=== PATIENT | female | born 1975 | race Caucasian/White ===

== ENCOUNTER → 2022-11-20 10:00 | Outpatient (BNVA) | payer OTHER, SELFPAY | PROVIDERS: Family Provider Physician Assistant; PCP Family Medicine; Visit Provider Internal Medicine Rheumatology | DX: M19.90 Unspecified osteoarthritis, unspecified site (principal); Z79.899 Other long term (current) drug therapy; Z11.59 Encounter for screening for other viral diseases | CPT/HCPCS: 36415; 80076; 82306; 82565; 85025; 85651; 86140; 86480; 86704; 86803; 87340 ==

== ENCOUNTER → 2023-07-08 14:26 | Outpatient (BNVA) | payer OTHER, SELFPAY | PROVIDERS: Family Provider Physician Assistant; PCP Family Medicine; Visit Provider Internal Medicine Rheumatology | DX: Z79.899 Other long term (current) drug therapy (principal); M05.79 Rheumatoid arthritis with rheumatoid factor of multiple sites without organ or systems involvement; M19.90 Unspecified osteoarthritis, unspecified site; Z71.85 Encounter for immunization safety counseling; Z79.1 Long term (current) use of non-steroidal anti-inflammatories (NSAID); I26.99 Other pulmonary embolism without acute cor pulmonale | CPT/HCPCS: 36415; 80076; 82565; 85025; 86140 ==

== ENCOUNTER → 2023-10-21 14:25 | Outpatient (BNVA) | payer OTHER, SELFPAY | PROVIDERS: Family Provider Physician Assistant; PCP Family Medicine; Visit Provider Internal Medicine Rheumatology | DX: Z79.899 Other long term (current) drug therapy (principal); M05.79 Rheumatoid arthritis with rheumatoid factor of multiple sites without organ or systems involvement | CPT/HCPCS: 80076; 82565; 85025; 86140 ==

== ENCOUNTER 2023-12-16 00:05 | Inpatient (IN) | payer OTHER, SELFPAY ==
[2023-12-16] VITALS (13 sets, daily range): BP systolic 115–144; BP diastolic 64–94; PULSE 77–99; RESP 16–20; TEMP 36.4–37.1; O2SAT 93–97; BMI 59.6
--- NOTE | 2023-12-16 00:06 | XRR_ITS ---
PROCEDURE INFORMATION: Exam: XR Chest Exam date and time: 12/16/2023 1:00 AM Age: 48 years old Clinical indication: Other: Stroke protocol; Additional info: Ams/cva TECHNIQUE: Imaging protocol: Radiologic exam of the chest. Views: 1 view. COMPARISON: CT angio headneck* [id number] 12/16/2023 12:22 AM FINDINGS: Lungs: No consolidation or pulmonary edema. Pleural spaces: No pleural effusion. No pneumothorax. Heart/Mediastinum: Cardiomediastinal silhouette is normal in size. Bones/joints: No acute fractures. XR/XR chest 1V portable [id number] IMPRESSION: No acute findings.
--- NOTE | 2023-12-16 00:07 | ECG_ITS ---
[facility] Test Date: 2023-12-16 Pat Name: Vicki Steve Department: Room: Gender: Female [employer]ayer: : 1975 Requested By: Arturo Singh Order Number: [id number] Leyva MD: Fitz Coley M.D. Measurements Intervals [place] Rate: 88 P: 53 VT: 147 QRS: 46 QRSD: 105 T: 42 QT: 383 QTc: 465 Interpretive Statements SINUS RHYTHM No previous ECG available for comparison Electronically Signed On 12-16-2023 12:28:55 CDT by Fitz Coley M.D. [id number]
--- NOTE | 2023-12-16 00:07 | CTR_ITS ---
PROCEDURE INFORMATION: Exam: CT Head Without Contrast Exam date and time: 12/16/2023 12:10 AM Age: 48 years old Clinical indication: Stroke-like symptoms; Speech disturbance and other: Dysphasia/ aphasia; Additional info: Symptoms of acute stroke TECHNIQUE: Imaging protocol: Computed tomography of the head without contrast. Radiation optimization: All CT scans at this facility use at least one of these dose optimization techniques: automated exposure control; mA and/or kV adjustment per patient size (includes targeted exams where dose is matched to clinical indication); or iterative reconstruction. Other technique: STROKE PROTOCOL was implemented. COMPARISON: No relevant prior studies available. RADIATION DOSE METRICS: Total DLP (mGy-cm): 2208.18 FINDINGS: Brain: There are small hypodensities in the central midbrain and rey, which may represent ischemic infarcts of indeterminate age or artifacts. No acute intracranial hemorrhage. No mass effect or midline shift. No acute extraaxial fluid collection. Unremarkable white matter. Cerebral ventricles: No ventriculomegaly. Paranasal sinuses: Partially visualized sinuses are unremarkable. No fluid levels. Mastoid air cells: Visualized mastoid air cells are well aerated. Bones/joints: Unremarkable. No acute calvarial fracture. Soft tissues: There is a 1.2 cm skin lesion in the left frontal scalp. CT/CT head thrombolytic [id number] IMPRESSION: 1. There are small hypodensities in the central midbrain and rey, which may represent ischemic infarcts of indeterminate age or artifacts. Brain MRI without IV contrast is recommended to further evaluate. 2. No acute intracranial hemorrhage. 3. A 1.2 cm skin lesion in the left frontal scalp. ASSESSMENT: ASPECTS ([place] Stroke Program Early CT Score) is 10.
--- NOTE | 2023-12-16 00:11 | W.ED.AMS ---
HPI - Altered Mental Status General: Chief Complaint: Neuro Symptoms/Deficit Stated Complaint: N/V Time Seen by Provider: 12/16/23 00:06 History of Present Illness: 48-year-old female presents emergency department with nausea vomiting and dysarthria that started approximately 2215. Patient is currently taking apixaban for history of pulmonary embolism. She is alert and oriented x 4 follows commands appropriately. She has no other neurological deficits. Stroke alert was immediately called prior to arrival and upon arrival the patient was immediately taken to the CT scan for evaluation. She denies recent trauma or injury. Review of Systems General: Reports: 10 or more systems reviewed and unremarkable except in HPI and below Neuro: Reports: Slurred speech present [facility] ED PFSH: Medical History Pulmonary embolism NSAID long-term use Immunization counseling High risk medication use Seropositive rheumatoid arthritis of multiple sites Pre-diabetes Joint pain Allergies Positive CLAUDIA (antinuclear antibody) 1:40, not significant Surgical History History of cholecystectomy History of delivery Family History Other CAD (coronary artery disease) Cancer Diabetes Family history of premature coronary artery disease Hypertension Lung disease Denies family history of Rheumatoid arthritis Lupus Hyperlipidemia Chronic kidney disease (CKD) Stroke Social History Smoking and tobacco/nicotine status: former use of tobacco/nicotine Quit status (tobacco/nicotine): has quit using Year quit tobacco: 01/09/2023 Alcohol intake: current Alcohol intake frequency: holidays/special occasions only Physical Exam Narrative: Constitutional: the patient appears well nourished and with normal development. Vital signs reviewed as documented. HENMT: Normocephalic, atraumatic. External ears normal appearance without drainage. Nose without drainage, normal appearance. Mucus membranes moist. Neck is supple, No jugular venous distension, trachea is midline, no appreciable carotid bruits. No lymphadenopathy. No meningeal signs. Flexion, extension and lateral rotation is without pain. Eyes: Pupils are equal, round, reactive to light and accommodation. No scleral icterus. Extra-ocular movement are intact. Thorax is symmetrical and with equal rise and fall with respirations. Resp: Lungs are clear to auscultation. No wheezes, rales, crackles or ronchi at present. Cardio: Regular rate and rhythm. Positive S1, S2. No appreciable murmurs, rubs or gallops. GI: Abdominal exam reveals normal bowel sounds to all quadrants. No organomegaly. No obvious palpable masses noted. No hepatomegally appreciated. Soft, non-tender to palpation. Extremity: Extremities are non-edematous and both femoral and pedal pulses are 2+ and equal bilaterally. Moves all extremities well, sensation in all extremities. Neuro: Alert and oriented x4, person, place, time and situation. Cranial nerves II through XII are grossly intact, at present the patient does have significant dysarthria and slurred speech. Sensation intact to all extremities. 2-point discrimination intact. Light touch intact to all extremities. Motor strength in the upper and lower extremities are equal and bilateral 5/5. Psych: Cooperative, calm, normal thought process, appropriate judgment. Skin: No lesions, rashes. No gross abnormalities noted. Back: Symmetrical, no obvious deformity, No CVA tenderness Course Vital Signs: Vital signs: Vital Signs Temperature 98.7 F 12/16/23 03:36 Pulse Rate 99 12/16/23 06:07 Respiratory Rate 16 12/16/23 03:36 Blood Pressure 136/83 12/16/23 03:36 Pulse Oximetry 97 12/16/23 03:36 Oxygen Delivery Me thod Nasal Cannula 12/16/23 03:42 MDM - Altered Mental Status Medical Decision Making Physical exam completed and documented I did immediately contact Dr. Peraza for neurology and discussed the patient's case I also contact the hospitalist physician for admission to the medical service for additional evaluation treatment and care. Patient did meet exclusion criteria given that she takes apixaban and the patient was not provided and I thrombolytic therapy. A CT scan of the head was obtained and did demonstrate small hypodensities in the central midbrain and rey which may represent ischemic infarcts. Patient also had a 1.2 cm skin lesion to the left frontal scalp region. NIH Stroke Scale/Score (NIHSS) on 12/16/2023 RESULT SUMMARY: 7 points NIH Stroke Scale INPUTS: 1A: Level of consciousness ?> 0 = Alert; keenly responsive 1B: Ask month and age ?> 2 = Aphasic 1C: 'Blink eyes' & 'squeeze hands' ?> 0 = Performs both tasks 2: Horizontal extraocular movements ?> 0 = Normal 3: Visual terrell ?> 0 = No visual loss 4: Facial palsy ?> 0 = Normal symmetry 5A: Left arm motor drift ?> 0 = No drift for 10 seconds 5B: Right arm motor drift ?> 0 = No drift for 10 seconds 6A: Left leg motor drift ?> 0 = No drift for 5 seconds 6B: Right leg motor drift ?> 0 = No drift for 5 seconds 7: Limb Ataxia ?> 0 = No ataxia 8: Sensation ?> 0 = Normal; no sensory loss 9: Language/aphasia ?> 3 = Mute/global aphasia: no usable speech/auditory comprehension 10: Dysarthria ?> 2 = Mute/anarthric 11: Extinction/inattention ?> 0 = No abnormality Medical Records I reviewed the patient's medical records. Lab Data I reviewed the patient's lab results. 12/16/23 00:49 12/16/23 00:49 Radiology Impressions Chest X-Ray 12/16/23 00:06 IMPRESSION: No acute findings. ADDENDUM: 12/16/23 0113 Mild bilateral pulmonary edema or pulmonary venous congestion. Head CT 12/16/23 00:07 IMPRESSION: 1. There are small hypodensities in the central midbrain and rey, which may represent ischemic infarcts of indeterminate age or artifacts. Brain MRI without IV contrast is recommended to further evaluate. 2. No acute intracranial hemorrhage. 3. A 1.2 cm skin lesion in the left frontal scalp. ASSESSMENT: ASPECTS ([place] Stroke Program Early CT Score) is 10. ADDENDUM: 12/16/23 0035 THIS REPORT CONTAINS FINDINGS THAT MAY BE CRITICAL TO PATIENT CARE. The findings and recommendations were verbally communicated via telephone conference with LUAN Shah by Dr. Gonzalez on 12/16/2023 at 12:33 AM CDT. The findings were acknowledged and understood. Head/Neck CTA 12/16/23 00:18 IMPRESSION: 1. No major intracranial artery aneurysm, obstruction or significant stenosis. 2. origin of bilateral posterior cerebral arteries, which is a normal variant. 3. No acute intracranial findings. IMPRESSION: 1. No major neck artery stenosis, aneurysm, pseudoaneurysm or occlusion. 2. Bilateral pulmonary edema. REFERENCES: NASCET CRITERIA. The degree of stenosis in the cervical segment of the internal carotid artery is based on NASCET criteria. Normal is no stenosis. Mild is less than 50% stenosis. Moderate is 50-69% stenosis. Severe is 70% to 99% stenosis. Total occlusion is no detectable patent lumen. Laboratory Results WBC 12.33 10^3/uL (3.29-11.43) H 12/16/23 00:49 RBC 3.90 10^6/uL (3.85-5.65) 12/16/23 00:49 Hgb 13.20 g/dL (11.27-16.99) 12/16/23 00:49 Hct 39.0 % (36-47) 12/16/23 00:49 MCV 100.0 fl (85-98) H 12/16/23 00:49 MCH 33.8 pg (27-33) H 12/16/23 00:49 MCHC 33.8 g/dL (30-55) 12/16/23 00:49 RDW 15.0 % (12.1-15.1) 12/16/23 00:49 Plt Count 340 10^3/cmm (157-399) 12/16/23 00:49 MPV 9.2 fL (7.4-10.4) 12/16/23 00:49 Neut % (Auto) 41.9 % 12/16/23 00:49 Lymph % (Auto) 50.4 % 12/16/23 00:49 [place] % (Auto) 5.8 % 12/16/23 00:49 Eos % (Auto) 0.7 % 12/16/23 00:49 Baso % (Auto) 0.8 % 12/16/23 00:49 Neut # (Auto) 5.15 10^3/uL (1.8-7.7) 12/16/23 00:49 Lymph # (Auto) 6.2 10^3/uL (0.8-4.8) H 12/16/23 00:49 [place] # (Auto) 0.7 10^3/uL (0.2-0.9) 12/16/23 00:49 Eos # (Auto) 0.1 10^3/uL (0.0-0.8) 12/16/23 00:49 Baso # (Auto) 0.1 10^3/uL (0.0-0.1) 12/16/23 00:49 Nucleated RBC % (auto) 0 % 12/16/23 00:49 Nucleated RBCs # 0.0 /100WBC 12/16/23 00:49 PT 12.70 SECONDS (12.1-14.9) 12/16/23 00:49 INR 0.93 (0.8-1.2) 12/16/23 00:49 APTT 27.0 SECONDS (23.9-36.7) 12/16/23 00:49 Sodium 140 mmol/L (136-145) 12/16/23 00:49 Potassium 3.4 mmol/L (3.5-5.1) L 12/16/23 00:49 Chloride 101 mmol/L (98-107) 12/16/23 00:49 Carbon Dioxide 26 mmol/L (22-29) 12/16/23 00:49 Anion Gap 16.4 (5-19) 12/16/23 00:49 BUN 11 mg/dL (6-20) 12/16/23 00:49 Creatinine 1.1 mg/dL (0.5-0.9) H 12/16/23 00:49 GFR Calculation 52.6 mL/min (90-130) L 12/16/23 00:49 Glucose 125 mg/dL (65-115) H 12/16/23 00:49 POC Glucose 144 mg/dL (70-110) H 12/16/23 00:15 Estimat Average Glucose 151 12/16/23 00:49 Hemoglobin A1c 6.9 % (4.0-6.0) H 12/16/23 00:49 Calculated Osmolality 291 mOsm/kg (285-295) 12/16/23 00:49 Calcium 8.8 mg/dL (8.5-10.5) 12/16/23 00:49 Total Bilirubin 0.2 mg/dL (0.15-1.2) 12/16/23 00:49 AST 20 U/L (0-32) 12/16/23 00:49 ALT 26 U/L (0-33) 12/16/23 00:49 Alkaline Phosphatase 86 U/L (35-105) 12/16/23 00:49 Total Protein 6.3 g/dL (6.6-8.7) L 12/16/23 00:49 Albumin 3.6 g/dL (3.5-5.2) 12/16/23 00:49 Globulin 2.7 g/dL (1.3-4.6) 12/16/23 00:49 Triglycerides 197 mg/dL (0-150) H 12/16/23 00:49 Cholesterol 191 mg/dL (0-200) 12/16/23 00:49 LDL Cholesterol, Calc 100 mg/dL (50-129) 12/16/23 00:49 HDL Cholesterol 52 mg/dL (60-100) L 12/16/23 00:49 LDL/HDL Ratio 1.92 RATIO (0.00-3.22) 12/16/23 00:49 Cholesterol/HDL Ratio 3.67 mg/dL (0.0-4.40) 12/16/23 00:49 Urine Color Yellow (Yellow) 12/16/23 00:53 Urine Appearance Clear (CLEAR) 12/16/23 00:53 Urine pH 6 (5-7) 12/16/23 00:53 Ur Specific [place] 1.010 (1.005-1.030) 12/16/23 00:53 Urine Protein Neg (Negative) 12/16/23 00:53 Urine Glucose (UA) Norm (Normal) 12/16/23 00:53 Urine Ketones Negative (Negative) 12/16/23 00:53 Urine Blood Neg (Negative) 12/16/23 00:53 Urine Nitrate Negative (Negative) 12/16/23 00:53 Urine Bilirubin Neg (Negative) 12/16/23 00:53 Urine Urobilinogen 1 mg/dL (Negative) H 12/16/23 00:53 Ur Leukocyte Esterase Negative (Negative) 12/16/23 00:53 Urine Opiates Screen Negative ng/mL (Negative) 12/16/23 00:53 Ur Barbiturates Screen Negative ng/mL (Negative) 12/16/23 00:53 Ur Phencyclidine Scrn Negative ng/mL (Negative) 12/16/23 00:53 Ur Amphetamines Screen Negative ng/mL (Negative) 12/16/23 00:53 U Benzodiazepines Scrn Negative ng/mL (Negative) 12/16/23 00:53 Urine Cocaine Screen Negative ng/mL (Negative) 12/16/23 00:53 U Marijuana (THC) Screen Negative ng/mL (Negative) 12/16/23 00:53 All radiology interpretation(s) finalized by discharge EKG Data EKG 1: Interpretation: Twelve-lead EKG obtained at 0 137 reviewed at 0 140 demonstrates sinus rhythm ventricular rate of 88 bpm, VT interval 147 QRS duration 105, QT [address] elevation or depression to demonstrate acute ischemia or infarction at present. Critical Care Time Critical Care Time: Critical Care Time: Yes Total Critical Care Time: 45 Attestation: The patients was emergently evaluated as this patient's presentation and case had a high probability of a clinically significant, sudden, or life threatening deterioration of this patient's initial critical presentation or condition which required my full and direct attention, intervention and personal management. Discharge Plan Discharge Patient Disposition: Admitted As Inpatient Admit Provider: Huey Hair Clinical Impression: Acute CVA (cerebrovascular accident) Condition: Stable Coding Level of Care Code ED [employer] Worker for Rodney Shafer
--- NOTE | 2023-12-16 00:18 | CTR_ITS ---
PROCEDURE INFORMATION: Exam: CTA Head With Contrast, Arteriography Exam date and time: 12/16/2023 12:22 AM Age: 48 years old Clinical indication: Speech disturbance; Dysphasia; Additional info: Ams/cva TECHNIQUE: Imaging protocol: Computed tomographic angiography of the head with contrast. Exam focused on the arteries. 3D rendering (Not supervised by radiologist): MIP and/or 3D reconstructed images were created by the technologist. Radiation optimization: All CT scans at this facility use at least one of these dose optimization techniques: automated exposure control; mA and/or kV adjustment per patient size (includes targeted exams where dose is matched to clinical indication); or iterative reconstruction. Contrast material: OMNI 350; Contrast volume: 100 ml; Contrast route: INTRAVENOUS (IV); COMPARISON: CT head thrombolytic [id number] 12/16/2023 12:10 AM RADIATION DOSE METRICS: Total DLP (mGy-cm): 565.02 FINDINGS: ANTERIOR CIRCULATION: Right internal carotid artery: Intracranial segment is patent with no significant stenosis. No aneurysm. Calcified atherosclerotic plaques without significant stenosis. Right middle cerebral artery: No occlusion or significant stenosis. No aneurysm. Right anterior cerebral artery: No occlusion or significant stenosis. No aneurysm. Left internal carotid artery: Intracranial segment is patent with no significant stenosis. No aneurysm. Calcified atherosclerotic plaques without significant stenosis. Left middle cerebral artery: No occlusion or significant stenosis. No aneurysm. Left anterior cerebral artery: No occlusion or significant stenosis. No aneurysm. POSTERIOR CIRCULATION: Right vertebral artery: No occlusion or significant stenosis. No aneurysm. Left vertebral artery: No occlusion or significant stenosis. No aneurysm. Basilar artery: No occlusion or significant stenosis. No aneurysm. Right posterior cerebral artery: No occlusion or significant stenosis. No aneurysm. There is a origin of the right posterior cerebral artery, which is a normal variant. Left posterior cerebral artery: No occlusion or significant stenosis. No aneurysm. There is a origin of the left posterior cerebral artery, which is a normal variant. Brain: There is no evidence of acute intracranial hemorrhage, subacute or chronic ischemic infarct, acute intra-axial or extra-axial fluid collection, mass effect, or midline shift. Cerebral ventricles: No ventriculomegaly. Bones/joints: Unremarkable. No acute fracture. Soft tissues: Unremarkable. PROCEDURE INFORMATION: Exam: CTA Neck With Contrast Exam date and time: 12/16/2023 12:22 AM Age: 48 years old Clinical indication: Speech disturbance; Dysphasia; Additional info: Ams/cva TECHNIQUE: Imaging protocol: Computed tomographic angiography of the neck with contrast. Exam focused on the cervical segments of the vasculature. 3D rendering (Not supervised by radiologist): MIP and/or 3D reconstructed images were created by the technologist. Radiation optimization: All CT scans at this facility use at least one of these dose optimization techniques: automated exposure control; mA and/or kV adjustment per patient size (includes targeted exams where dose is matched to clinical indication); or iterative reconstruction. Contrast material: OMNI 350; Contrast volume: 100 ml; Contrast route: INTRAVENOUS (IV); COMPARISON: CT head thrombolytic [id number] 12/16/2023 12:10 AM RADIATION DOSE METRICS: Total DLP (mGy-cm): 565.02 FINDINGS: Right common carotid artery: No stenosis. No dissection or occlusion. Right internal carotid artery: No stenosis of the extracranial segment. No dissection or occlusion. Right external carotid artery: No occlusion or stenosis of the origin. Left common carotid artery: No stenosis. No dissection or occlusion. Left internal carotid artery: No stenosis of the extracranial segment. No dissection or occlusion. Left external carotid artery: No occlusion or stenosis of the origin. Right vertebral artery: No stenosis. No dissection or occlusion. Left vertebral artery: No stenosis. No dissection or occlusion. Soft tissues: Normal. No significant soft tissue swelling. Bones/joints: No acute fracture. Lungs: Bilateral pulmonary edema. CT/CT angio headneck* [id number] IMPRESSION: 1. No major intracranial artery aneurysm, obstruction or significant stenosis. 2. origin of bilateral posterior cerebral arteries, which is a normal variant. 3. No acute intracranial findings. IMPRESSION: 1. No major neck artery stenosis, aneurysm, pseudoaneurysm or occlusion. 2. Bilateral pulmonary edema. REFERENCES: NASCET CRITERIA. The degree of stenosis in the cervical segment of the internal carotid artery is based on NASCET criteria. Normal is no stenosis. Mild is less than 50% stenosis. Moderate is 50-69% stenosis. Severe is 70% to 99% stenosis. Total occlusion is no detectable patent lumen.
[2023-12-16] MEDS: iohexol 350 mg/mL 500 mL Btl (per mL) IV (00:37)
--- NOTE | 2023-12-16 00:54 | PM.CONSULT ---
Providers/Reason For Consult Consulting Physician/Specialty*: Ciro Peraza MD neurology and epilepsy Reason for Consult*: Code stroke emergency department room #10 Primary Care Provider: Binu Etienne MD History of Present Illness History of Present Illness Vicki Steve is a 48 year old female with a history of pulmonary embolus treated with Eliquis, and seropositive rheumatoid arthritis. According to witnesses, the patient was reported to experience acute on onset of severe nausea and vomiting associated with aphasia and dysphagia at 10:15 PM on 12/15/2023. Code stroke was initiated at 11:29 PM alerting estimated time of arrival 35 minutes out from [facility] emergency room. Upon arrival at [facility] emergency department the patient underwent stat noncontrast head CT and CT angiogram of the head and neck were ordered. NIH score = 7 performed by the attending ER physician. Immediately following none contrast head CT and CT angiogram of the head and neck once the patient was brought back to emergency department room #10 NIH score performed by me =3 (secondary to stuttering type expressive aphasia, dysarthria and questionable neglect on double sensory stimulation). There was no obvious facial weakness and patient was able to protrude her tongue and there was bilateral elevation of her palate. There was no focal weakness in her arm or legs. Handgrips appeared strong with prompting. Noncontrast Head CT scan was performed on 12/16/2023 at 00:17 a.m. and was interpreted by radiology to reveal small hypodensities in the central midbrain and rey, which may represent ischemic infarcts of indeterminate age or artifacts. Brain MRI without IV contrast is recommended to further evaluate. Accu-Chek glucose 144. Since the patient is currently on Eliquis, patient was not a candidate for thrombolytics and no thrombolytics were administered. CT angiogram of the head and neck was performed on 12/16/2023 at 00:18 a.m. and was reported by radiology to reveal No major intracranial artery aneurysm, obstruction or significant stenosis. 2. origin of bilateral posterior cerebral arteries, which is a normal variant. 3. No acute intracranial findings. Drug allergies: None Current home medications: Eliquis 10 mg p.o. twice daily for pulmonary embolus Adalimumab 40 mg subcutaneously every 14 days for rheumatoid arthritis Methotrexate 2.5 mg to be used as directed for rheumatoid arthritis Prednisone 10 mg p.o. daily Sulfasalazine 500 mg tablets 2 tablets p.o. twice daily Vitamin B complex with vitamin C 1 capsule p.o. daily Albuterol sulfate 90 mcg per accusation 2 puffs every 6 hours as needed Cetirizine 5 mg/pseudoephedrine 20 mg ER 1 p.o. twice daily Vitamin D3 2000 international units p.o. daily Diclofenac 1% topical gel 2 g topically 4 times a day Flonase 50 mcg per accusation 2 sprays intranasally daily Folic acid 1 mg p.o. daily Omeprazole 40 mg p.o. daily Past medical history: Pulmonary embolus currently treated with Eliquis Seropositive rheumatoid arthritis Habits: Unknown Family history: Unknown Review of Systems General: Reports: 10 or more systems reviewed and unremarkable except in HPI and below Medications/Allergies Home Medications Medication Instructions Recorded Confirmed Last Taken Type albuterol sulfate 90 mcg/actuation 2 puff inhalation Q6H PRN 11/19/22 10/21/23 Unknown History aerosol inhaler (ProAir HFA) cetirizine 5 mg-pseudoephedrine ER 1 tab PO BID 11/19/22 10/21/23 Unknown History 120 mg tablet,extended release,12hr (Zyrtec-D) fluticasone propionate 50 2 spray intranasal DAILY 11/19/22 10/21/23 Unknown History mcg/actuation nasal spray,suspension (Allergy Relief (fluticasone)) vitamin B comp and C no.3 15 mg-10 1 cap PO DAILY 11/19/22 10/21/23 Unknown History mg-50 mg-5 mg-300 mg capsule (B Complex Plus Vitamin C) apixaban 5 mg tablet (Eliquis) 10 mg PO BID 01/14/23 10/21/23 Unknown History diclofenac sodium 1 % topical gel 2 g topical QID #100 grams 01/14/23 10/21/23 Unknown Rx cholecalciferol (vitamin D3) 50 2,000 unit PO DAILY #90 tabs 07/08/23 10/21/23 Unknown Rx mcg (2,000 unit) tablet adalimumab 40 mg/0.8 mL 40 mg (0.8 mL) SUBCUT Q14D #2 ea 10/21/23 10/21/23 Unknown Rx subcutaneous pen kit (Humira Pen) folic acid 1 mg tablet 1 mg PO DAILY #90 tabs 10/21/23 10/21/23 Unknown Rx methotrexate sodium 2.5 mg tablet See Rx Instructions PO .week 10/21/23 10/21/23 Unknown Rx Rheumatoid Arthritis #150 tabs omeprazole 40 mg capsule,delayed 40 mg PO DAILY #90 caps 10/21/23 10/21/23 Unknown Rx release prednisone 10 mg tablet 10 mg PO DAILY joint pain #90 tabs 10/21/23 10/21/23 Unknown Rx sulfasalazine 500 mg tablet 1 g (2 x 500 mg) PO BID #120 tabs 10/21/23 10/21/23 Unknown Rx Allergies Allergy/AdvReac Type Severity Reaction Status Date / Time No Known Allergies Allergy Verified 12/16/23 00:48 Current Medications Generic Name Dose Route Start Last Admin Trade Name Bijuq PRN Reason Stop Dose Admin Iohexol 0 ml 12/16/23 00:36 12/16/23 00:37 Iohexol 350 Mg/Ml 500 Ml Btl (Per Ml) IV 12/16/23 00:37 100 ml ONCE ONE Administration PFSH Acute PFSH: Medical History Pulmonary embolism NSAID long-term use Immunization counseling High risk medication use Seropositive rheumatoid arthritis of multiple sites Pre-diabetes Joint pain Allergies Positive CLAUDIA (antinuclear antibody) 1:40, not significant Surgical History History of cholecystectomy History of delivery Family History Other CAD (coronary artery disease) Cancer Diabetes Family history of premature coronary artery disease Hypertension Lung disease Denies family history of Rheumatoid arthritis Lupus Hyperlipidemia Chronic kidney disease (CKD) Stroke Social History Smoking and tobacco/nicotine status: former use of tobacco/nicotine Quit status (tobacco/nicotine): has quit using Year quit tobacco: 01/09/2023 Alcohol intake: current Alcohol intake frequency: holidays/special occasions only Vitals/I&O/Wt Last Vital Signs Temp 98.7 F 12/16/23 00:25 Pulse 99 12/16/23 00:25 Resp 20 H 12/16/23 00:25 BP 144/94 12/16/23 00:25 Pulse Ox 93 12/16/23 00:25 O2 Del Method Room Air 12/16/23 00:25 Weight last 48 hrs Weight 326 lb Physical Exam Narrative: NIH score =3 (secondary to stuttering type speech/expressive aphasia, dysarthria, and questionable neglect on double sensory stimulation). Blood pressure 144/94 heart rate 102 O2 saturations 92% on room air The patient was alert and oriented x 3 speech at times stuttering with expressive aphasia. Patient was able to protrude her tongue. There was no facial weakness. Pupils 4 mm round reactive to light and accommodation. Extraocular movements intact. There were no nystagmus. Visual terrell appear to be full via confrontation. Throat clear. Patient was able to protrude her tongue and move her tongue without any difficulty. Patient displayed bilateral elevation of her palate. Motor testing grossly nonfocal at 5/5. Patient was able to hold her arms against gravity as well as her legs against gravity. There was no drift. [id number] was negative for obvious ataxia. Ucfo-ilqi-[id number] maneuver was not attempted secondary to patient's being overweight. Sensory examination was intact to touch. There was some questionable extinction on double sensory stimulation. Deep tendon reflex revealed plantar responses bilaterally. There was no clonus. Throat clear. Lungs clear. Heart regular rhythm with slightly increased rate at 102 bpm. Extremities were negative for cyanosis. A&P Assessment and plan (1) Non-fluent aphasia: Impression: 1. Acute onset of nausea and vomiting associated with expressive aphasia on 12/15/2023 at 10:15 PM. Note: Since the patient is currently on Eliquis for pulmonary embolus, patient was not a candidate for thrombolytics and no thrombolytics were administered 2. Reported dysphagia associated with nausea and vomiting. Patient was not experiencing vomiting or dysphagia during this neurological assessment although the patient reported some nausea 3. Pulmonary embolus currently on Eliquis 4. Seropositive rheumatoid arthritis Plan: 1. Agree with obtaining head MRI without and with contrast to further assess for posterior circulation stroke since noncontrast head CT was inconclusive to confirm or exclude acute stroke 2. Recommend starting lipid-lowering agent per NIH stroke protocol if no contraindications 3. Recommend speech path, occupational therapy and physical therapy consults 4. Neurochecks per NIH stroke protocol Consult Attestations Medical Necessity Statement: The patient was evaluated by neurology for acute care/code stroke emergency department room #10 Coding Level of Care Code 93145 Diagnoses Non-fluent aphasia R47.01
[2023-12-16 01:11] LABS: Basophils # 0.1 10^3/uL (0.0-0.1); Basophils % 0.8 %; Eosinophils # 0.1 10^3/uL (0.0-0.8); Eosinophils % 0.7 %; Lymphocytes # 6.2 10^3/uL (0.8-4.8); Lymphocytes % 50.4 %; Mean Corpuscular HGB Conc 33.8 g/dL (30-55); Mean Corpuscular Hemoglobin 33.8 pg (27-33); Mean Platelet Volume 9.2 fL (7.4-10.4); Monocytes # 0.7 10^3/uL (0.2-0.9); Monocytes % 5.8 %; Neutrophils # 5.15 10^3/uL (1.8-7.7); Neutrophils % 41.9 %; Nucleated Red Blood Cells % 0 %; Platelet Count 340 10^3/cmm (157-399); White Blood Count 12.33 10^3/uL (3.29-11.43)
[2023-12-16 01:13] LABS: Add Urine Microscopic? NO; Charge for UA Resulting for Rev
[2023-12-16 01:18] LABS: Bilirubin Urine Neg (Negative); Blood Urine Neg (Negative); Glucose Urine UA Norm (Normal); Ketones Urine Negative (Negative); Leukocyte Esterase Urine Negative (Negative); Nitrate Urine Negative (Negative); Protein Urine Neg (Negative); Urine Appearance Clear (CLEAR); Urine Color Yellow (Yellow); Urobilinogen Urine 1 mg/dL (Negative); pH Urine 6 (5-7)
[2023-12-16 01:26] LABS: INR 0.93 (0.8-1.2)
[2023-12-16 01:26] LABS: Amphetamines Screen Urine Negative (Negative); Barbiturates Screen Urine Negative (Negative); Benzodiazepines Screen Urine Negative (Negative); Cocaine Screen Urine Negative (Negative); Opiate Screen Urine Negative (Negative); PCP Screen Urine Negative (Negative); THC Screen Urine Negative (Negative)
[2023-12-16 01:38] LABS: Alanine Aminotransferase 26 U/L (0-33); Albumin Level 3.6 g/dL (3.5-5.2); Alkaline Phosphatase 86 U/L (35-105); Anion Gap 16.4 (5-19); Aspartate Amino Transferase 20 U/L (0-32); Blood Urea Nitrogen 11 mg/dL (6-20); Calcium 8.8 mg/dL (8.5-10.5); Carbon Dioxide 26 mmol/L (22-29); Chloride 101 mmol/L (98-107); Creatinine Clr Calc Pharmacy 86.1672; Globulin 2.7 g/dL (1.3-4.6); Glomerular Filtration Rate 52.6 mL/min (90-130); Glucose 125 mg/dL (65-115); Osmolality Calculated 291 mOsm/kg (285-295); Potassium 3.4 mmol/L (3.5-5.1); Sodium 140 mmol/L (136-145); Total Bilirubin 0.2 mg/dL (0.15-1.2); Total Protein 6.3 g/dL (6.6-8.7)
[2023-12-16 02:56] LABS: Glucose Point of Care 144 mg/dL (70-110)
--- NOTE | 2023-12-16 03:05 | MR_ITS ---
WS: [id number] MRI BRAIN WITH AND WITHOUT CONTRAST HISTORY: acute stroke COMPARISON: CT head 12/16/2023 TECHNIQUE: Multiplanar imaging performed through the brain with MultiHance 20 ml's IV. No acute infarcts are seen. Cho-white matter differentiation is well preserved. Normal diffusion elizabeth ging. No prior infarct. No significant white matter disease. No atrophy. No susceptibility artifacts or prior lacunar infarcts. Normal temporal lobes. No hippocampal atrophy. Ventricles and extra-axial spaces are normal. Clivus and pituitary gland are normal. Visualized posterior fossa and brainstem are also normal. Postcontrast images are negative for masses or vascular malformations. Dural venous sinuses are normal. Paranasal sinuses: Well aerated with no significant disease. Mastoid air cells: Normal. Calvarium and scalp: Normal. IMPRESSION: 1. No acute infarct. No diffusion abnormality. 2. No prior infarct. No atrophy or significant small vessel disease. 3. No mass.
--- NOTE | 2023-12-16 03:05 | USCV_ITS ---
Vicki Steve Age: 48 Gender: F : 1975 Exam Date: 12/16/2023 03:39 Ordering Phys: Huey Hair DO Technologist: LIANNA Exam Location: [facility] [place] Indication: stroke, altered mental status, dysphasia, CT = brain stem infarcts, history of pulmonary emboli, rhematoid arthritis BP: 136 / 83 HR: 92 Rhythm: Sinus Technical Quality: Adequate MEASUREMENTS (Male / Female) Normal Values 2D ECHO LV Diastolic Diameter PLAX 4.9 cm 4.2 - 5.9 / 3.9 - 5.3 cm IVS Diastolic Thickness 1.1 cm 0.6 - 1.0 / 0.6 - 0.9 cm IVS Systolic Thickness 1.7 cm LVPW Diastolic Thickness 1.3 cm 0.6 - 1.0 / 0.6 - 0.9 cm LVPW Systolic Thickness 1.3 cm LVOT Diameter 2.1 cm LV Ejection Fraction 2D Teich 67.9 % LV Ejection Fraction MOD 2C 68.9 % LV Ejection Fraction 2C AL 71.2 % LA Diameter 3.1 cm LA Sys Volume AL 41.2 cm cubed LA Sys Volume Index AL 15.6 cm cubed/m squared Aorta at Sinotubular Diameter 2.8 cm IVC Diameter 1.2 cm M-MODE LA Ao Ratio MM 1.3 AV Cusp Separation MM 2.0 cm DOPPLER AV Peak Velocity 117.0 cm/s LVOT Peak Velocity 79.0 cm/s AV Area Cont Eq vti 3.2 cm squared AV Area Cont Eq pk 2.4 cm squared MV Peak Velocity 87.0 cm/s MV Area PHT 4.0 cm squared Mitral E to A Ratio 1.2 TV Peak E Velocity 64.0 cm/s PV Peak Velocity 79.0 cm/s FINDINGS Left Ventricle Left ventricle is normal size. LV systolic function is borderline normal with EF of 50 to 55%. No regional wall motion abnormalities are seen. Right Ventricle Normal in size and function Right Atrium Normal in size Left Atrium Normal in size Mitral Valve Structurally normal mitral valve. Trace mitral regurgitation. Aortic Valve Structurally normal aortic valve. No significant stenosis or regurgitation. Tricuspid Valve Mild tricuspid regurgitation. Insufficient TR jet to evaluate RVSP. Pulmonic Valve Trace pulmonic regurgitation. Pericardium Normal Aorta Normal in size IVC Appears to be normal CONCLUSIONS LV systolic function is borderline normal with EF of 50 to 55%. Trace mitral regurgitation. Mild tricuspid regurgitation. Trace pulmonic regurgitation No comparison studies are available. Fitz Coley MD (Electronically Signed) Final Date: 16 December 2023 07:50 S
[2023-12-16] MEDS: sodium chloride 0.9% 1,000 ML 100 ML IV ×2 (03:14→16:03)
--- NOTE | 2023-12-16 03:19 | PM.HP ---
Providers/Chief Complaint Admitting Physician: Huey Hair DO Primary Care Provider: Binu Etienne MD Chief Complaint: N/V History of Present Illness Vicki Steve is a 48 year old female with history of PE and rheumatoid arthritis on long-term steroids producing secondary diabetes presents with sudden onset of not feeling well overall weak and having trouble moving. Her daughter is present and gives other history that patient was unable to speak. She seemed to understand but could not find her words. Patient came to the ER as a stroke code. The CT of the head showed brainstem infarcts of indeterminate age. CTA of head and neck was negative it was felt that this was an acute stroke in the brainstem. To my understanding she was out of the window for thrombolytics per neurology Review of Systems Const: Denies: fever(s) or chills Eyes: Denies: change in vision ENMT: Denies: throat pain or nasal congestion Card: Denies: chest pain or palpitations Resp: Denies: dyspnea or productive cough GI: Denies: abdominal pain, nausea, vomiting or change in stool character : Denies: dysuria Musc: Denies: back pain or extremity pain Skin/Breast: Denies: rash or lesions Neuro: Denies: headache(s) or dizziness Psych: Denies: anxiety or depression Abbe/Lymph: Denies: easy bruising or easy bleeding Medications/Allergies Home Medications Medication Instructions Recorded Confirmed Last Taken Type albuterol sulfate 90 mcg/actuation 2 puff inhalation Q6H PRN 11/19/22 10/21/23 Unknown History aerosol inhaler (ProAir HFA) cetirizine 5 mg-pseudoephedrine ER 1 tab PO BID 11/19/22 10/21/23 Unknown History 120 mg tablet,extended release,12hr (Zyrtec-D) fluticasone propionate 50 2 spray intranasal DAILY 11/19/22 10/21/23 Unknown History mcg/actuation nasal spray,suspension (Allergy Relief (fluticasone)) vitamin B comp and C no.3 15 mg-10 1 cap PO DAILY 11/19/22 10/21/23 Unknown History mg-50 mg-5 mg-300 mg capsule (B Complex Plus Vitamin C) apixaban 5 mg tablet (Eliquis) 10 mg PO BID 01/14/23 10/21/23 Unknown History diclofenac sodium 1 % topical gel 2 g topical QID #100 grams 01/14/23 10/21/23 Unknown Rx cholecalciferol (vitamin D3) 50 2,000 unit PO DAILY #90 tabs 07/08/23 10/21/23 Unknown Rx mcg (2,000 unit) tablet adalimumab 40 mg/0.8 mL 40 mg (0.8 mL) SUBCUT Q14D #2 ea 10/21/23 10/21/23 Unknown Rx subcutaneous pen kit (Humira Pen) folic acid 1 mg tablet 1 mg PO DAILY #90 tabs 10/21/23 10/21/23 Unknown Rx methotrexate sodium 2.5 mg tablet See Rx Instructions PO .week 10/21/23 10/21/23 Unknown Rx Rheumatoid Arthritis #150 tabs omeprazole 40 mg capsule,delayed 40 mg PO DAILY #90 caps 10/21/23 10/21/23 Unknown Rx release prednisone 10 mg tablet 10 mg PO DAILY joint pain #90 tabs 10/21/23 10/21/23 Unknown Rx sulfasalazine 500 mg tablet 1 g (2 x 500 mg) PO BID #120 tabs 10/21/23 10/21/23 Unknown Rx Allergies Allergy/AdvReac Type Severity Reaction Status Date / Time No Known Allergies Allergy Verified 12/16/23 00:48 PFSH Acute PFSH: Medical History Pulmonary embolism NSAID long-term use Immunization counseling High risk medication use Seropositive rheumatoid arthritis of multiple sites Pre-diabetes Joint pain Allergies Positive CLAUDIA (antinuclear antibody) 1:40, not significant Surgical History History of cholecystectomy History of delivery Family History Other CAD (coronary artery disease) Cancer Diabetes Family history of premature coronary artery disease Hypertension Lung disease Denies family history of Rheumatoid arthritis Lupus Hyperlipidemia Chronic kidney disease (CKD) Stroke Social History Smoking and tobacco/nicotine status: former use of tobacco/nicotine Quit status (tobacco/nicotine): has quit using Year quit tobacco: 01/09/2023 Alcohol intake: current Alcohol intake frequency: holidays/special occasions only Vitals/I&O/Wt Last Vital Signs Temp 98.7 F 04/16/24 00:25 Pulse 93 12/16/23 02:23 Resp 16 12/16/23 02:23 BP 136/83 12/16/23 02:23 Pulse Ox 97 12/16/23 02:23 O2 Del Method Room Air 12/16/23 00:25 Weight last 48 hrs Weight 147.871 kg Physical Exam Narrative: Patient is alert oriented appears acutely ill Neuro:NIHSS 8, drift in all 4 ext. limb ataxia in 2, sensory 1, aphasia 1 HEENT head is normocephalic atraumatic pupils equal and round and reactive to light and commendation extraocular muscles are intact mucous membranes are moist and pink without lesions or exudate neck is supple no JVD carotid bruits or lymphadenopathy Chest: Rises symmetrically with inspiration Heart: Regular normal S1-S2 without murmur click gallop or rub Lungs: Clear to auscultation without wheezes rales or rhonchi Abdomen obese soft nontender nondistended positive bowel sounds Extremities trace pitting edema along anterior dickson bilaterally Back: No obvious scoliosis or kyphosis no CVA tenderness Psych mood and affect are appropriate for condition Skin no obvious rash or lesion Urinary Catheter Management: Webb: Cath Placed During This Visit: yes Urinary Catheter Date of Insertion: 12/16/23 Urinary Catheter Time of Insertion: 00:45 Data 12/16/23 00:49 12/16/23 00:49 CXR: My impression: No acute findings Radiologist's impression: No acute findings CT Head: Radiologist's impression: 1. There are small hypodensities in the central midbrain and rey, which may represent ischemic infarcts of indeterminate age or artifacts. Brain MRI without IV contrast is recommended to further evaluate. 2. No acute intracranial hemorrhage. 3. A 1.2 cm skin lesion in the left frontal scalp. 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 until dysphagia screen MRI brain tomorrow Echo per standing orders however this is posterior stroke so echo unlikely to reveal etiology of stroke (2) Non-fluent aphasia: (3) Pulmonary embolism: About a year ago Qualifiers: Pulmonary embolism type: unspecified Chronicity: chronic Acute cor pulmonale presence: unspecified Qualified Code(s): I27.82 - Chronic pulmonary embolism (4) Seropositive rheumatoid arthritis of multiple sites: Resume prednisone when able to take p.o. 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 She needs to be closely monitored for worsening signs and symptoms. With patient's comorbidities she is at high risk for complications of stroke. 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
[2023-12-16 03:46] LABS: Chol HDL Ratio 3.67 mg/dL (0.0-4.40); Cholesterol 191 mg/dL (0-200); HDL Cholesterol 52 mg/dL (60-100); LDL Cholesterol Calculated 100 mg/dL (50-129); LDL HDL Ratio 1.92 RATIO (0.00-3.22); Triglycerides 197 mg/dL (0-150)
[2023-12-16 04:00] LABS: Estmated Average Glucose 151; Hemoglobin A1C 6.9 % (4.0-6.0)
[2023-12-16 06:22] LABS: Glucose Point of Care 120 mg/dL (70-110)
--- OUTSIDE RECORDS SUMMARY | 2023-12-16 06:27 | XMS_ITS ---
Author Name Binu Etienne Address [address] [place] [address] [phone] Organization [facility] Address [address] [place] [address] [phone] Care Team Providers Care Insole Buffer Name Role Phone Binu Etienne Primary Care Physician Unavail able Binu Etienne Preferred Provider Unavailable Allergies and Adverse Reactions Name Reaction Notes NO KNOWN DRUG ALLERGIES Medications Active Name Start Date Estimated Comple tion Date SIG Comments prednisone 20 mg tablet Take 0.5 tab let daily omeprazole 40 mg capsule,delayed release take 1 capsule ( 40 mg) by oral route once daily before a meal folic acid 1 mg tablet take 1 tablet (1 mg) by oral route once daily methotrexate sodium 2.5 mg tablet take 10 tablets (2.5 mg) by oral route once weekly albuterol sulfate HFA 90 mcg/actuation aerosol inhaler 01/17/2023 01/12/2024 inhale 1 - 2 puffs (90 - 180 mcg) by inhalation route every 6 hours as needed for 90 days metformin 500 mg tablet 02/07/2023 02/02/2024 take 1 tablet (500 mg) by oral route 2 times per day with morning and evening meals for 90 days Eliquis 5 mg tablet 11/19/2023 TAKE 1 T ABLET BY MOUTH TWICE DAILY FOR 28 DAYS furosemide 20 mg tablet 11/19/2023 TAKE 1 TABLET BY MOUTH EVERY DAY FOR 7 DAYS then NEEDED Name Start Date Expiration Date SIG Comments Levaquin 500 mg oral tablet 07/13/2007 07/23/2007 take 1 tablet (500mg ) by oral route once daily for 10 days Reynolds 7.5-325 mg oral tablet 09/07/2007 09/17/2007 take 1 tablet by ora l route every 6 hours as needed for pain [place] HC 12.5-5-3.5 mg/5 mL oral syrup 09/17/2007 09/27/2007 take 2 teaspoonfuls (10 ml) by oral route every 6 hours for 10 days Zithromax Z-Samy 250 mg oral tablet 09/05/2008 09/15/2008 Take 2 tablets the first day (500 mg) followed by 1 tablet (250 mg) days 2-5. for 5 days diazepam 2 mg oral tablet 12/06/2008 12/11/2008 ta ke 1 tablet by oral route 4 times a day as needed for 5 days penicillin V potassium 250 mg oral tablet 03/21/2009 03/31/2009 take 1 tablet by ora l route 4 times a day for 10 days Lortab 5-500 mg oral tablet 03/21/2009 03/28/2009 take 1 tablet by ora l route every 6 hours as needed for pain for 7 days Anjelica-D 24 Hour 180-240 mg oral tablet extended release 24 hr 07/04/2009 07/18/2009 take 1 tablet by ora l route daily for 14 days Tussionex Pennkinetic ER 10-8 mg/5 mL oral suspension,extended rel 12 hr 08/17/2009 08/31/2009 take 5 milliliters b y oral route 2 times a day as needed for 14 days Zithromax 250 mg oral tablet 08/17/2009 08/22/2009 take 2 tablets (500 mg) by oral route once daily for 1 day then 1 tablet (250 mg) by oral route once daily for 4 days Zithromax Z-Samy 250 mg oral tablet 07/05/2010 07/10/2010 take 2 tablets (500m g) by oral route once daily for 1 day then 1 tablet (250mg) by oral route once daily for 4 days Hydromet 5-1.5 mg/5 mL oral syrup 07/05/2010 07/15/2010 take 5 milliliters b y oral route every 6 hours as needed for 10 days Lortab 7.5-500 mg oral tablet 03/25/2011 03/30/2011 take 1 tablet by ora l route every 6 hours as needed for pain for 5 days Augmentin 875-125 mg oral tablet 03/25/2011 04/04/2011 take 1 tablet by ora l route every 12 hours for 10 days prednisone 10 mg oral tablet 03/26/2011 04/04/2011 take 3 tablets daily for 3 days, 2 tablets daily for 3 days, then 1 tablet daily for 3 days. Take with meal or snack Zithromax Z-Samy 250 mg oral tablet 09/06/2011 09/11/2011 take 2 tablets (500m g) by oral route once daily for 1 day then 1 tablet (250mg) by oral route once daily for 4 days albuterol sulfate 90 mcg/actuation inhalation HFA aerosol inhaler 06/03/2012 07/03/2012 inhale 2 puffs by inhalation route every 4 hours as needed for 30 days Bactrim DS 800-160 mg oral tablet 06/03/2012 06/13/2012 take 1 tablet by ora l route 2 times per day for 10 days doxycycline hyclate 100 mg oral capsule 06/03/2012 06/13/2012 take 1 capsule by or al route 2 times a day for 10 days Zithromax Z-Samy 250 mg oral tablet 10/29/2013 take 2 tablets (500m g) by oral route once daily for 1 day then 1 tablet (250mg) by oral route once daily for 4 days Zithromax Z-Samy 250 mg oral tablet 08/29/2014 09/03/2014 take 2 tablets (500m g) by oral route once daily for 1 day then 1 tablet (250mg) by oral route once daily for 4 days Medrol (Samy) 4 mg oral tablets,dose pack 11/11/2014 11/17/2014 take as directed for 6 days amoxicillin 875 mg oral tablet 11/11/2014 11/21/2014 take 1 tablet (875 m g) by oral route every 12 hours for 10 days promethazine 25 mg oral tablet 11/11/2014 11/18/2014 take 1 tablet (25 mg ) by oral route every 6 hours as needed for 7 days fluticasone 50 mcg/actuation nasal spray,suspension 01/17/2016 08/14/2016 inhale 2 sprays (100 mcg) in each nostril by intranasal route once daily for 30 days Sudafed 12 Hour 120 mg oral tablet extended release 01/17/2016 01/27/2016 take 1 tablet (120 m g) by oral route every 12 hours for 10 days cyanocobalamin (vitamin B-12) 1,000 mcg/mL injection solution 08/01/2020 08/31/2020 inject 1cc weekly fo r 4 weeks, then 1 cc every 2 weeks for a month, finally 1 cc monthly thereafter Zyrtec-D 5-120 mg oral tablet extended release 12 hr 12/19/2020 12/14/2021 take 1 tablet by ora l route daily as needed for 90 days Vitamin D2 1,250 mcg (50,000 unit) capsule 07/06/2021 07/01/2022 take 1 capsule by oral route once weekly montelukast 10 mg tablet 12/21/2021 04/20/2022 laura e 1 tablet (10 mg) by oral route once daily in the evening for 30 days Discontinued Name Start Date Discontinued Date SIG Comment s Advair Diskus 250-50 mcg/dose inhalation blister with device 07/13/2007 10/19/2012 inhale 1 puff by inhalation route 2 times per day morning and evening approximately 12 hours apart albuterol 90 mcg/actuation inhalation aerosol 07/13/2007 10/19/2012 inhale 2 puffs by inhalation route every 6 hours as needed Singulair 10 mg oral tablet 07/13/2007 07/05/2010 take 1 tablet (10mg) by oral route once daily amoxicillin 875 mg oral tablet 10/19/2012 01/12/2013 take 1 tablet (875 m g) by oral route every 12 hours for 10 days Zithromax Z-Samy 250 mg oral tablet 07/21/2013 10/29/2013 take 2 tablets (500m g) by oral route once daily for 1 day then 1 tablet (250mg) by oral route once daily for 4 days Reynolds 5-325 mg oral tablet 12/07/2020 take 1- 2 tablets by oral route every 4 hours as needed for pain Augmentin 875-125 mg oral tablet 12/07/2020 take 1 tablet by ora l route every 12 hours for 10 days vitamin B complex tablet 07/06/2021 01/13/2023 take 1 tablet by ora l route daily methotrexate sodium 2.5 mg tablet 01/17/2023 take 1 tablet (2.5 m g) by oral route once weekly Problem List Description Status Onset Asthma Active Vitamin D deficiency Active 07/21/2020 Morbid obesity Active 07/21/2020 Vitamin B12 deficiency Active 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 Low HDL Active Pulmonary embolism Active 12/2022 Rheumatoid arthritis Active 05/16/2023 Colonoscopy refused Active 05/16/2023 Vital Signs Date Time BP-Sys(mm[Hg] BP-Myrna(mm[Hg]) HR(bpm) RR(rpm) Temp WT HT HC BMI BSA BMI Percentile O2 Sat(%) 2022 8:44: 00 AM 138 mm[Hg] 88 mm[Hg] 2022 8:33: 00 AM 140 mm[Hg] 98 mm[Hg] 97 {beats}/ min 16 rpm 308 lbs 61 in 58.1 955 kg/m 2 2.45 21 m2 98 % 023 8:07: 00 AM 136 mm[Hg] 70 mm[Hg] 91 {beats}/ min 305 .12 5 lbs 61 in 57.6 5 kg/m 2 2.44 m2 97 % 2022 8:01: 00 AM 132 mm[Hg] 70 mm[Hg] 85 {beats}/ min 16 rpm 197 .25 lbs 61 in 37.2 697 kg/m 2 1.96 23 m2 96 % 07/22 1:44: 00 PM 130 mm[Hg] 80 mm[Hg] 87 {beats}/ min 16 rpm 285 lbs 61 in 53.8 5 kg/m 2 2.36 m2 95 % 2021 8:07: 00 AM 118 mm[Hg] 80 mm[Hg] 84 {beats}/ min 16 rpm 295 .12 5 lbs 61 in 55.7 628 kg/m 2 2.40 03 m2 95 % 2020 1:31: 00 PM 134 mm[Hg] 86 mm[Hg] 88 {beats}/ min 18 rpm 293 lbs 61 in 55.3 6 kg/m 2 2.39 m2 96 % 021 8:10: 00 AM 120 mm[Hg] 82 mm[Hg] 86 {beats}/ min 18 rpm 293 .12 5 lbs 61 in 55.3 849 kg/m 2 2.39 22 m2 98 % 07/21 1:34: 00 PM 132 mm[Hg] 80 mm[Hg] 86 {beats}/ min 18 rpm 291 .5 lbs 61 in 55.0 8 kg/m 2 2.39 m2 2019 8:42: 00 AM 138 mm[Hg] 82 mm[Hg] 88 {beats}/ min 18 rpm 98.3 F 268 lbs 61 in 50.6 376 kg/m 2 2.28 73 m2 98 % 2018 2:04: 00 PM 130 mm[Hg] 82 mm[Hg] 64 {beats}/ min 16 rpm 270 lbs 61 in 51.0 2 kg/m 2 2.30 m2 017 9:31: 00 AM 138 mm[Hg] 86 mm[Hg] 72 {beats}/ min 18 rpm 285 .25 lbs 61 in 53.8 97 kg/m 2 2.35 98 m2 2015 8:54: 00 AM 130 mm[Hg] 94 mm[Hg] 96 {beats}/ min 18 rpm 267 .12 5 lbs 61 in 50.4 7 kg/m 2 2.28 m2 2015 8:56: 00 AM 130 mm[Hg] 92 mm[Hg] 72 {beats}/ min 20 rpm 96.9 F 263 .5 lbs 61 in 49.7 874 kg/m 2 2.26 81 m2 2014 3:13: 00 PM 132 mm[Hg] 92 mm[Hg] 80 {beats}/ min 16 rpm 98.8 F 242 .12 5 lbs 08/24 8:33: 00 AM 110 mm[Hg] 88 mm[Hg] 100 {beats}/ min 20 rpm 98.4 F 236 .5 lbs 2013 11:45 :00 AM 130 mm[Hg] 82 mm[Hg] 64 {beats}/ min 16 rpm 98.5 F 228 .37 5 lbs 61 in 43.1 506 kg/m 2 2.11 15 m2 07/21 10:07 :00 AM 120 mm[Hg] 94 mm[Hg] 100 {beats}/ min 18 rpm 97.5 F 230 .37 5 lbs 61 in 43.5 3 kg/m 2 2.12 m2 2012 11:41 :00 AM 126 mm[Hg] 80 mm[Hg] 76 {beats}/ min 16 rpm 98.1 F 252 lbs 61 in 47.6 145 kg/m 2 2.21 8 m2 2011 9:49: 00 AM 140 mm[Hg] 80 mm[Hg] 72 {beats}/ min 16 rpm 253 lbs 61 in 47.8 0 kg/m 2 2.22 m2 012 11:01 :00 AM 142 mm[Hg] 76 mm[Hg] 88 {beats}/ min 18 rpm 98 F 257 lbs 63 in 45.5 25 kg/m 2 2.27 63 m2 2010 8:56: 00 AM 130 mm[Hg] 90 mm[Hg] 88 {beats}/ min 261 .25 lbs 63 in 46.2 8 kg/m 2 2.30 m2 06/24 3:54: 00 PM 114 mm[Hg] 80 mm[Hg] 60 {beats}/ min 16 rpm 258 .25 lbs 63 in 45.7 465 kg/m 2 2.28 19 m2 2010 7:29: 00 AM 124 mm[Hg] 80 mm[Hg] 68 {beats}/ min 98.2 F 62. 5 in 2010 9:00: 00 AM 128 mm[Hg] 80 mm[Hg] 84 {beats}/ min 99.5 F 254 lbs 62. 5 in 45.7 164 kg/m 2 2.25 4 m2 2009 1:53: 00 PM 142 mm[Hg] 90 mm[Hg] 84 {beats}/ min 99 F 08/17 9:42: 00 AM 130 mm[Hg] 82 mm[Hg] 88 {beats}/ min 99.6 F 2008 11:26 :00 AM 122 mm[Hg] 70 mm[Hg] 72 {beats}/ min 98.7 F 2008 11:11 :00 AM 124 mm[Hg] 90 mm[Hg] 72 {beats}/ min 98 F 2008 11:48 :00 AM 120 mm[Hg] 86 mm[Hg] 80 {beats}/ min 98 F 2008 2:27: 00 PM 140 mm[Hg] 82 mm[Hg] 72 {beats}/ min 99.1 F 009 11:15 :00 AM 162 mm[Hg] 102 mm[Hg] 64 {beats}/ min 98.4 F 009 11:04 :00 AM 140 mm[Hg] 84 mm[Hg] 84 {beats}/ min 99.5 F 2007 11:20 :00 AM 134 mm[Hg] 78 mm[Hg] 76 {beats}/ min 98.6 F 008 2:55: 00 PM 140 mm[Hg] 90 mm[Hg] 68 {beats}/ min 18 rpm 97.8 F 07/13 9:44: 00 AM 118 mm[Hg] 84 mm[Hg] 84 {beats}/ min 98 F 275 lbs Social History Name Description Comments Caffeine Tobacco Former smoker 02/07/2023 - - 07/22/2022 - 07/06/2021 - 12/30/2016 - Alcohol Never 05/16/2023 - 05/2023 - 07/22/2022 - 07/06/2021 - Amount used: 0-2 per day History of Procedures Date Ordered Description Order Status 02/22/2009 12:00 AM Decadron La 8mg Reviewed 09/17/2007 12:00 AM Decadron 4 Mg Reviewed 09/17/2007 12:00 AM Decadron LA 8mg Reviewed 01/17/2016 12:00 AM Celestone 6mg/7mg Reviewed 03/11/2016 12:00 AM URINALYSIS AUTO W/SCOPE Revie wed 03/11/2016 12:00 AM GLYCOSYLATED HEMOGLOBIN TEST Reviewed 03/11/2016 12:00 AM COMPLETE CBC W/AUTO DIFF WBC Reviewed 03/11/2016 12:00 AM LIPID PANEL Reviewed 03/11/2016 12:00 AM ASSAY THYROID STIM HORMONE Re viewed 03/11/2016 12:00 AM COMPREHEN METABOLIC PANEL Rev iewed 03/11/2016 12:00 AM MICROALBUMIN QUANTITATIVE Rev iewed 03/11/2016 12:00 AM ASSAY OF URINE CREATININE Rev iewed 03/19/2016 12:00 AM Lower extremity neur ological exam performed and documented Reviewed 03/19/2016 12:00 AM COMP SCREEN MAMMOGRAM ADD-ON Reviewed 03/19/2016 12:00 AM Screening digital ma mmography of breast with computer-aided detection (CAD) Reviewed 12/26/2016 12:00 AM ALANINE AMINO (ALT) (SGPT) Re viewed 12/26/2016 12:00 AM METABOLIC PANEL TOTAL CA Revi ewed 12/26/2016 12:00 AM ASSAY OF BLOOD LIPOPROTEIN Re viewed 12/26/2016 12:00 AM GLYCOSYLATED HEMOGLOBIN TEST Reviewed 12/26/2016 12:00 AM ASSAY OF TRIGLYCERIDES Review ed 12/30/2016 12:00 AM TOBACCO USE TXMNT PHARMACOL Re viewed 12/30/2016 12:00 AM BEHAV CHNG SMOKING 3-10 MIN Re viewed 10/08/2017 10:23 AM UNLISTED PREVENTIVE SERVICE Re viewed 11/19/2017 12:00 AM GLYCOSYLATED HEMOGLOBIN TEST Reviewed 12/11/2018 12:00 AM ASSAY THYROID STIM HORMONE Re viewed 12/11/2018 12:00 AM MICROALBUMIN QUANTITATIVE Rev iewed 12/11/2018 12:00 AM COMPLETE CBC W/AUTO DIFF WBC Reviewed 12/11/2018 12:00 AM GLYCOSYLATED HEMOGLOBIN TEST Reviewed 12/11/2018 12:00 AM VITAMIN D 25 HYDROXY Reviewed 12/11/2018 12:00 AM LIPID PANEL Reviewed 12/11/2018 12:00 AM COMPREHEN METABOLIC PANEL Rev iewed 12/11/2018 12:00 AM URINALYSIS AUTO W/SCOPE Revie wed 12/18/2018 12:00 AM TOBACCO USE TXMNT PHARMACOL R eviewed 12/18/2018 12:00 AM BEHAV CHNG SMOKING 3-10 MIN R eviewed 12/18/2018 12:00 AM Self management - Diabetes Re viewed 05/28/2019 12:00 AM GLYCOSYLATED HEMOGLOBIN TEST Reviewed 05/28/2019 12:00 AM ASSAY THYROID STIM HORMONE Re viewed 09/28/2019 12:00 AM BEHAV CHNG SMOKING 3-10 MIN R eviewed 09/28/2019 12:00 AM TOBACCO USE TXMNT PHARMACOL R eviewed 09/28/2019 12:00 AM STREP A AG EIA Reviewed 09/28/2019 12:00 AM INFLUENZA ASSAY W/OPTIC Revie wed 09/28/2019 12:00 AM Injection, betametha sone acetate 3mg and betamethasone sodium phosphate 3mg Reviewed 07/14/2020 12:00 AM GLYCOSYLATED HEMOGLOBIN TEST Reviewed 07/14/2020 12:00 AM VITAMIN D 25 HYDROXY Reviewe d 07/14/2020 12:00 AM COMPREHEN METABOLIC PANEL Re viewed 07/14/2020 12:00 AM COMPLETE CBC W/AUTO DIFF WBC Reviewed 07/14/2020 12:00 AM MICROALBUMIN QUANTITATIVE Re viewed 07/14/2020 12:00 AM ASSAY OF URINE CREATININE Re viewed 07/14/2020 12:00 AM ASSAY THYROID STIM HORMONE R eviewed 07/14/2020 12:00 AM LIPID PANEL Reviewed 07/14/2020 12:00 AM TRANS CARE MGMT 14 DAY DISCH Reviewed 07/14/2020 12:00 AM SYMPTOM MGMNT PLAN CARE DOCD Reviewed 07/21/2020 12:00 AM VITAMIN B-12 Reviewed 07/21/2020 12:00 AM URINE TEST Reviewe d 07/21/2020 12:00 AM CYTOPATH C/V AUTO FLUID REDO Reviewed 07/21/2020 12:00 AM CA screen;pelvic/breast exam Reviewed 07/21/2020 12:00 AM HPV HIGH-RISK TYPES Reviewed 12/01/2020 12:00 AM US BONE DENSITY MEASURE Review ed 12/01/2020 12:00 AM VITAMIN D 25 HYDROXY Reviewed 12/01/2020 12:00 AM Chronic Medication Management Reviewed 03/25/2011 12:00 AM Decadron 4 Mg 2nd cc given Re viewed 03/25/2011 12:00 AM Decadron La 8mg Reviewed 06/08/2021 12:00 AM MICROALBUMIN QUANTITATIVE Rev iewed 06/08/2021 12:00 AM ASSAY OF URINE CREATININE Rev iewed 06/08/2021 12:00 AM VITAMIN D 25 HYDROXY Reviewed 06/08/2021 12:00 AM VITAMIN B-12 Reviewed 06/08/2021 12:00 AM ASSAY THYROID STIM HORMONE Re viewed 06/08/2021 12:00 AM LIPID PANEL Reviewed 06/08/2021 12:00 AM URINALYSIS AUTO W/SCOPE Revie wed 06/08/2021 12:00 AM COMPREHEN METABOLIC PANEL Rev iewed 06/08/2021 12:00 AM COMPLETE CBC W/AUTO DIFF WBC Reviewed 06/08/2021 12:00 AM GLYCOSYLATED HEMOGLOBIN TEST Reviewed 07/06/2021 12:00 AM Screening annual mammography Reviewed 12/21/2021 12:00 AM URINALYSIS AUTO W/SCOPE Revie wed 07/22/2022 1:49 PM Foot examination per formed (includes examination through visual inspection, sensory exam with monofi Reviewed 07/22/2022 12:00 AM BEHAV CHNG SMOKING 3-10 MIN Reviewed 07/22/2022 12:00 AM TOBACCO USE TXMNT COUNSELING Reviewed 07/22/2022 12:00 AM RBC SED RATE NONAUTOMATED Re viewed 07/22/2022 12:00 AM C-REACTIVE PROTEIN Reviewed 07/22/2022 12:00 AM CCP ANTIBODY Reviewed 07/22/2022 12:00 AM RHEUMATOID FACTOR QUANT Revi ewed 07/22/2022 12:00 AM ANTINUCLEAR ANTIBODIES Revie wed 01/13/2023 12:00 AM TRANS CARE MGMT 14 DAY DISCH Reviewed 01/13/2023 12:00 AM SYMPTOM MGMNT PLAN CARE DOCD Reviewed 01/24/2023 12:00 AM ALANINE AMINO (ALT) (SGPT) Re viewed 01/24/2023 12:00 AM METABOLIC PANEL TOTAL CA Revi ewed 01/24/2023 12:00 AM ASSAY OF BLOOD LIPOPROTEIN Re viewed 01/24/2023 12:00 AM GLYCOSYLATED HEMOGLOBIN TEST Reviewed 01/24/2023 12:00 AM ASSAY OF TRIGLYCERIDES Review ed 01/24/2023 12:00 AM ASSAY OF URINE CREATININE Rev iewed 01/24/2023 12:00 AM MICROALBUMIN QUANTITATIVE Rev iewed 01/24/2023 12:00 AM URINALYSIS AUTO W/SCOPE Revie wed 05/09/2023 12:00 AM HEPATIC FUNCTION PANEL Reviewe d 05/09/2023 12:00 AM LIPID PANEL Reviewed 05/09/2023 12:00 AM URINALYSIS AUTO W/SCOPE Review ed 05/09/2023 12:00 AM VITAMIN D 25 HYDROXY Reviewed 05/09/2023 12:00 AM ASSAY THYROID STIM HORMONE Rev iewed 05/09/2023 12:00 AM METABOLIC PANEL TOTAL CA Revie wed 05/09/2023 12:00 AM GLYCOSYLATED HEMOGLOBIN TEST R eviewed 05/09/2023 12:00 AM COMPLETE CBC W/AUTO DIFF WBC R eviewed 02/27/2009 12:00 AM Decadron 4 Mg Reviewed 03/21/2009 12:00 AM X-RAY EXAM OF SINUSES Reviewe d 02/27/2009 12:00 AM Decadron La 8mg Reviewed 02/22/2009 12:00 AM Decadron 4 Mg 2nd cc given Re viewed Results Summary Date and Description Results 03/11/2016 9:33 AM WBC 10.70 x10E3/uLGR % 59.70 %LYM % 36.80 %MID % 3.50 %RBC 4.370 x10E6/uLHGB 14.70 g/dLHCT 44.40 %MCV 101.60 fLMCH 33.60 pgMCHC 33.10 g/dLRDW 14.70 %PLT 323.0 x10E3/uLGRAN # 6.4LYM # 3.9MID # 0.4MPV 7.6COLOR YELLOWCOLOR YELLOWCLARITY CLEARSPEC GRAVITY 1.015PH 6.5PH 6.5ALBUMIN NEGATIVEALBUMIN NEGATIVEGLUCOSE NEGATIVEKETONES NEGATIVEBILIRUBIN NEGATIVEBLOOD NEGATIVENITRITES NEGATIVEUROBILINOGEN NEGATIVELEUKOCYTES NEGATIVEGLU 114.0 mg/dLBUN 11.0 mg/dLCREAT 0.80 mg/dLALB 3.90 g/dLALB 3.90 g/dLALP 82.0 U/LAST 3.0 U/LALT 6.0 U/LTBILI 0.60 mg/dLCA 9.20 mg/dLTP 6.70 g/dLNA 139.20 mmol/LK 4.50 mmol/LCL 105.80 mmol/LCL 105.80 mmol/LCO2 26.50 mmol/LCHOL 209.0 mg/dLCHOL 209.0 mg/dLTRIG 189.0 mg/dLHDL 43.0 mg/dLVLDL 37.80 mg/dLVLDL 37.80 mg/dLLDL 128.20 mg/Kian CHOL/HDL 4.9GFR 83.6GFR 83.6HGB A1C 5.60 %MEAN BLOOD GLU 114.0 mg/dLTSH 1.390 mIU/LMICROALBUMIN 5.0 ug/mLCREATININE 68.40 mg/dLALB:CREAT 7.3 03/19/2016 8:59 AM Diabetic Foot Exam D iabetic foot examination performed 05/29/2016 12:00 AM Mammogram Assessment Category benign 12/26/2016 9:21 AM GLU 122.0 mg/dLBUN 8 .0 mg/dLCREAT 0.70 mg/dLCA 9.20 mg/dLNA 138.70 mmol/LK 4.30 mmol/LCL 105.80 mmol/LCL 105.80 mmol/LCO2 24.0 mmol/LALT 1.0 U/LTRIG 129.0 mg/dLGFR 97.1GFR 97.1HGB A1C 5.70 %MEAN BLOOD GLU 116.90 mg/dLDLDL 133.0 mg/dLDLDL 133.0 mg/dL 11/19/2017 12:00 AM Hgb A1c Fr Bld 5.80 % 12/11/2018 7:44 AM WBC 8.80 x10E3/uLGR % 66.60 %LYM % 31.20 %MID % 2.20 %RBC 4.110 x10E6/uLHGB 14.0 g/dLHCT 41.10 %MCV 100.0 fLMCH 33.10 pgMCHC 33.0 g/dLRDW 14.60 %PLT 400.0 x10E3/uLGRAN # 5.9LYM # 2.7MID # 0.2MPV 7.4COLOR YELLOWCOLOR YELLOWCLARITY CLEARSPEC GRAVITY 1.010PH 6.0PH 6.0ALBUMIN NEGATIVEALBUMIN NEGATIVEGLUCOSE NEGATIVEKETONES NEGATIVEBILIRUBIN NEGATIVEBLOOD NEGATIVENITRITES NEGATIVEUROBILINOGEN NEGATIVELEUKOCYTES NEGATIVEGLU 116.0 mg/dLBUN 8.0 mg/dLCREAT 0.80 mg/dLALB 4.10 g/dLALB 4.10 g/dLALP 90.0 U/LAST 1.0 U/LALT 0.0 U/LTBILI 0.70 mg/dLCA 10.20 mg/dLTP 7.0 g/dLNA 139.80 mmol/LK 4.40 mmol/LCL 104.30 mmol/LCL 104.30 mmol/LCO2 25.80 mmol/LCHOL 194.0 mg/dLCHOL 194.0 mg/dLTRIG 126.0 mg/dLHDL 37.0 mg/dLVLDL 25.20 mg/dLVLDL 25.20 mg/dLLDL 131.80 mg/dLRF 5.2GFR 82.4GFR 82.4HGB A1C 5.80 %MEAN BLOOD GLU 119.80 mg/dLTSH 2.560 mIU/LMICROALBUMIN 5.10 ug/mLCREATININE 44.70 mg/dLALB:CREAT 11.4VIT D 7.36 ng/mL 12/18/2018 2:06 PM DM Pulse Exam Perfor medDM Sensory Exam PerformedDM Visual Exam performed 05/28/2019 12:00 AM Hgb A1c Fr Bld 5.80 %TSH SerPl-aCnc 1.690 mIU/LCholest SerPl-mCnc 178.0 mg/dLTrigl SerPl-mCnc 99.0 mg/dLHDLc SerPl-mCnc 40.0 mg/dLLDLc SerPl Calc-mCnc 118.0 mg/dLCholest/HDLc SerPl-mRto 4.40 RatioWBC # Bld Auto 11.40 x10E3/uLHgb Bld-mCnc 13.90 g/dLHct Fr Bld Auto 42.20 %Platelet # Bld Auto 395.0 x10E3/uLSodium SerPl-sCnc 140.0 mmol/LPotassium SerPl-sCnc 3.90 mmol/LChloride SerPl-sCnc 109.0 mmol/LCO2 SerPl-sCnc 21.80 mmol/LGlucose SerPl-mCnc 106.0 mg/dLCalcium SerPl-mCnc 8.70 mg/dLBUN SerPl-mCnc 8.0 mg/dLCreat SerPl-mCnc 0.610 mg/dLALT SerPl-cCnc 9.0 IU/LAST SerPl-cCnc 7.0 IU/LALP SerPl-cCnc 91.0 IU/LBilirub SerPl-mCnc 0.30 mg/dLAlbumin SerPl-mCnc 3.30 g/dLProt SerPl-mCnc 7.0 g/dL 09/28/2019 9:04 AM QUICK STREP NEGATIVE INFLUENZA NEGATIVE A NEGATIVE B 07/14/2020 8:18 AM WBC 11.40 x10E3/uLGR % 68.80 %LYM % 28.30 %MID % 2.90 %RBC 3.820 x10E6/uLHGB 12.70 g/dLHCT 39.10 %MCV 102.30 fLMCH 33.20 pgMCHC 32.40 g/dLRDW 14.40 %PLT 413.0 x10E3/uLGRAN # 7.8LYM # 3.2MID # 0.3MPV 7.2GLU 121.0 mg/dLBUN 8.0 mg/dLCREAT 0.70 mg/dLALB 3.60 g/dLALB 3.60 g/dLALP 77.0 U/LAST 4.0 U/LALT 0.0 U/LTBILI 0.40 mg/dLCA 9.30 mg/dLTP 6.20 g/dLNA 138.50 mmol/LK 4.70 mmol/LCL 106.0 mmol/LCL 106.0 mmol/LCO2 27.80 mmol/LCHOL 149.0 mg/dLCHOL 149.0 mg/dLTRIG 106.0 mg/dLHDL 41.0 mg/dLVLDL 21.20 mg/dLVLDL 21.20 mg/dLLDL 86.80 mg/dLRF 3.6GFR 95.7GFR 95.7HGB A1C 6.10 %MEAN BLOOD GLU 128.40 mg/dLTSH3 1.580 mIU/LMICROALBUMIN 8.90 ug/mLCREATININE 111.40 mg/dLALB:CREAT 8.0VIT D 4.38 ng/mL 07/21/2020 12:00 AM HPV mRNA E6/E7 Not D etected 07/21/2020 2:23 PM UHCG NEGATIVE 07/21/2020 2:25 PM B12 214.0 pg/mL 12/01/2020 8:46 AM VIT D 20.57 ng/mL/h 06/08/2021 8:24 AM WBC 10.40 x10E3/uLGR % 65.80 %LYM % 30.10 %MID % 4.10 %RBC 4.130 x10E6/uLHGB 13.80 g/dLHCT 40.90 %MCV 99.0 fLMCH 33.40 pgMCHC 33.70 g/dLRDW 14.50 %PLT 450.0 x10E3/uLGRAN # 6.8 x10E3/uLLYM # 3.1 %MID # 0.4MPV 7.1 fLCOLOR YELLOWCOLOR YELLOWCLARITY CLEARSPEC GRAVITY 1.010PH 6.0PH 6.0ALBUMIN NEGATIVE g/dLALBUMIN NEGATIVE g/dLGLUCOSE NEGATIVE mg/dLKETONES NEGATIVEBILIRUBIN NEGATIVEBLOOD NEGATIVENITRITES NEGATIVEUROBILINOGEN NEGATIVE mg/dLLEUKOCYTES NEGATIVEGLU 117.0 mg/dLBUN 11.0 mg/dLCREAT 0.70 mg/dLALB 3.90 g/dLALB 3.90 g/dLALP 83.0 IU/LAST 10.0 IU/LALT 13.0 IU/LTBILI 0.40 mg/dLCA 9.50 mg/dLTP 6.40 g/dLNA 140.30 mmol/LK 4.50 mmol/LCL 104.70 mmol/LCL 104.70 mmol/LCO2 32.80 mmol/LCHOL 172.0 %CHOL 172.0 %TRIG 137.0 mg/dLHDL 39.0 mg/dLVLDL 27.40 mg/dLVLDL 27.40 mg/dLLDL 105.60 mg/dLRF 4.4 RatioGFR 95.3 mL/min/1.73m??GFR 95.3 mL/min/1.73m??HGB A1C 6.10 %MEAN BLOOD GLU 128.40 mg/dLTSH3 1.5950 mIU/LMICROALBUMIN 5.0 ug/mLCREATININE 31.50 mg/dLALB:CREAT 15.9VIT D 13.67 ng/mL/h 06/08/2021 8:25 AM B12 226.0 pg/mL 08/03/2021 12:00 AM Mammogram Assessment Category benign 12/21/2021 8:07 AM Weight For Length Pe rcentile 0.1 {percentile}Body Mass Index Percentile for Age and Sex 0.1 {percentile} 12/21/2021 8:11 AM COLOR YELLOWCOLOR YE LLOWCLARITY CLEARSPEC GRAVITY 1.010PH 6.0PH 6.0ALBUMIN NEGATIVE g/dLALBUMIN NEGATIVE g/dLGLUCOSE NEGATIVEKETONES NEGATIVEBILIRUBIN NEGATIVEBLOOD NEGATIVENITRITES NEGATIVEUROBILINOGEN NEGATIVE mg/dLLEUKOCYTES NEGATIVE 07/17/2022 12:00 AM Hgb A1c Fr Bld 6.40 %Creat Ur-mCnc 0.670 mg/dLGlucose SerPl- mCnc 125.0 mg/dLPred GFR SerPl MDRD-vRate 107.30 mL/min/1.73m??LDLc SerPl Calc-mCnc 126.0 mg/dLTrigl SerPl-mCnc 185.0 mg/dL 07/22/2022 1:49 PM DM Pulse Exam Perfor medDM Sensory Exam PerformedDM Visual Exam performed 07/22/2022 1:59 PM ESR 29.0 mm/hr 07/22/2022 2:02 PM CLAUDIA SCREEN, IFA POSI TIVEANA TITER 1:40 titerANA PATTERN Nuclear, SpeckledRHEUMATOID FACTOR 211.0 IU/mLCYCLIC CITRULLINATED PEPTIDE (CCP) AB (IGG) 68 U/mLCRP 2.70 mg/dL 01/24/2023 7:26 AM COLOR YELLOWCOLOR YE LLOWCLARITY HAZYSPEC GRAVITY 1.015PH 6.0PH 6.0ALBUMIN NEGATIVE g/dLALBUMIN NEGATIVE g/dLGLUCOSE NEGATIVEKETONES NEGATIVEBILIRUBIN NEGATIVEBLOOD TRACENITRITES NEGATIVEUROBILINOGEN NEGATIVE mg/dLLEUKOCYTES NEGATIVEWBC/HPF 0-2RBC/HPF 1-3EPI/HPF 2-6 /HPFBACTERIA 1+MUCOUS 1+CASTS/LPF NONECRYSTALS Amorphous MaterialYEAST NONETRICHOMONOS NONEGLU 134.0 mg/dLBUN 10.0 mg/dLCREAT 0.90 mg/dLCA 10.10 mg/dLNA 140.20 mmol/LK 4.20 mmol/LCL 102.50 mmol/LCL 102.50 mmol/LCO2 32.0 mmol/LALT 11.0 IU/LTRIG 180.0 mg/dLGFR 70.7 mL/min/1.73m??GFR 70.7 mL/min/1.73m??HGB A1C 7.10 %MEAN BLOOD GLU 157.10 mg/dLMICROALBUMIN 12.60 ug/mLCREATININE 142.70 mg/dLALB:CREAT 8.8LDL_C 127.0 mg/dLLDL_C 127.0 mg/dL 05/09/2023 7:44 AM WBC 14.440 x10E3/uLG R % 44.980 %LYM % 45.380 %EOS % 1.92 %BASO% 0.67 %RBC 3.80 x10E6/uLHGB 13.30 g/dLHCT 40.40 %MCV 106.30 fLMCH 34.90 pgMCHC 32.80 g/dLRDW 14.40 %PLT 519.0 x10E3/uLGRAN # 6.5 x10E3/uLLYM # 6.6 %MONO% 7.1 %MONO# 1.0 x10E3/uLMPV 6.8 fLEOS # 0.3 x10E3/uLBASO # 0.1 x10E3/uLCOLOR YELLOWCOLOR YELLOWCLARITY HAZYSPEC GRAVITY 1.020PH 6.0PH 6.0ALBUMIN NEGATIVE g/dLALBUMIN NEGATIVE g/dLGLUCOSE NEGATIVEKETONES NEGATIVEBILIRUBIN 1+BLOOD NEGATIVENITRITES NEGATIVEUROBILINOGEN NEGATIVE mg/dLLEUKOCYTES NEGATIVEWBC/HPF 0-3RBC/HPF 0-1EPI/HPF 40-60 /HPFBACTERIA RAREMUCOUS 1+CASTS/LPF NONECRYSTALS NONEYEAST NONETRICHOMONOS NONEGLU 141.0 mg/dLBUN 14.0 mg/dLCREAT 0.80 mg/dLCA 10.30 mg/dLNA 140.30 mmol/LK 4.30 mmol/LCL 103.70 mmol/LCL 103.70 mmol/LCO2 29.40 mmol/LALB 4.0 g/dLALB 4.0 g/dLALP 60.0 IU/LAST 6.0 IU/LALT 13.0 IU/LTBILI 0.40 mg/dLDBILI 0.20 mg/dLTP 6.60 g/dLCHOL 183.0 %CHOL 183.0 %TRIG 161.0 mg/dLHDL 52.0 mg/dLVLDL 32.20 mg/dLVLDL 32.20 mg/dLLDL 98.80 mg/dLRF 3.5 RatioGFR 81.0 mL/min/1.73m??GFR 81.0 mL/min/1.73m??HGB A1C 7.10 %MEAN BLOOD GLU 157.10 mg/dLTSH3 2.4150 mIU/LVIT D 42.76 ng/mL/h History Of Immunizations Name Date Admin Mfg Name Mfg Code Trade Name Lot# Route Inj Vis Given Vis Pub CVX Influenza 05/14/20 18 Seqirus SEQ flucelvax, quadrivalent [id number] Not Entered Not Entered 019 2023 158 History of Past Illness Name Date of Onset Comments Asthma, With Acute Exacerbation Jul 13 2007 10:2 7AM Bronchitis, Acute Sep 17 2007 11:21AM Asthma Allergic Rhinitis Due To Pollen Upper Respiratory Infections Sep 05 2008 11:09AM Labyrinthitis Dec 06 2008 11:20AM Asthma Feb 22 2009 2:30PM Allergic Bronchitis Feb 22 2009 2:30PM Asthma Feb 27 2009 11:54AM Allergic Bronchitis Feb 27 2009 11:54AM Dental Disorder Mar 21 2009 11:14AM Otitis Media, Acute Jul 04 2009 11:29AM Bronchitis, Acute Aug 17 2009 9:46AM Vitamin D deficiency 07/21/2020 Morbid obesity 07/21/2020 Vitamin B12 deficiency Upper Respiratory Infections Jul 05 2010 1:53PM Low HDL 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 Pulmonary embolism 12/2022 Bilateral Rheumatoid arthritis 05/16/2023 Colonoscopy refused 05/16/2023 Spider Bite Mar 25 2011 9:01AM Spider Bite Improving Mar 26 2011 7:26AM Spider Bite Improving Mar 29 2011 7:30AM Foot Pain Jun 24 2011 4:27PM Foot Sprain Jun 24 2011 4:27PM Contusion Of Foot Jun 24 2011 4:27PM Foot Pain Jul 04 2011 8:58AM Foot Sprain Improving Jul 04 2011 8:58AM Upper Respiratory Infections Sep 06 2011 11:11AM Wheezing Sep 06 2011 11:11AM Open Wound, Complicated Jun 03 2012 9:49AM Sinusitis, Acute Oct 19 2012 12:00PM Cough Jul 21 2013 10:07AM Upper Respiratory Infections Jul 21 2013 10:07AM Upper Respiratory Infections Oct 29 2013 11:47AM Upper Respiratory Infections Aug 24 2014 8:37AM Upper Respiratory Infections Nov 11 2014 3:17PM Gastritis Nov 11 2014 3:17PM Other seasonal allergic rhinitis Jan 17 2016 8:5 8AM Diabetes Mellitus, Type II Feb 23 2016 10:36AM Drug therapy Feb 23 2016 10:36AM Diabetes Mellitus, Type II - stable with satisfactory control Mar 19 2016 8:57AM Pure hypercholesterolemia Mar 19 2016 8:57AM Overweight Mar 19 2016 8:57AM General Medical Exam, Adult Mar 19 2016 8:57AM Diabetes Mellitus, Type II Sep 12 2016 8:20AM Dyslipidemia Sep 12 2016 8:20AM Hyperglyceridemia Sep 12 2016 8:20AM Drug therapy Sep 12 2016 8:20AM Diabetes Mellitus, Type II - stable with satisfactory control Dec 30 2016 9:33AM Pure hypercholesterolemia Dec 30 2016 9:33AM Overweight Dec 30 2016 9:33AM General Medical Exam, Adult Dec 30 2016 9:33AM Tobacco Abuse Dec 30 2016 9:33AM Diabetes Mellitus, Type II Nov 03 2018 9:44AM Drug therapy Nov 03 2018 9:44AM Abnormal serum cholesterol Nov 03 2018 9:44AM Vitamin D deficiency Nov 03 2018 9:44AM Diabetes Mellitus, Type II - stable with satisfactory control Dec 18 2018 2:03PM Pure hypercholesterolemia Dec 18 2018 2:03PM Tobacco Abuse Dec 18 2018 2:03PM Obesity Dec 18 2018 2:03PM General Medical Exam, Adult Dec 18 2018 2:03PM Diabetes Mellitus, Type II Jun 07 2019 11:35AM Drug therapy Jun 07 2019 11:35AM High triglycerides Jun 07 2019 11:35AM Hyperlipidemia Jun 07 2019 11:35AM Asthma Sep 28 2019 8:49AM Diabetes Mellitus, Type II Sep 28 2019 8:49AM Cough Sep 28 2019 8:49AM Upper respiratory infection Sep 28 2019 8:49AM Diabetes Mellitus, Type II Jul 13 2020 10:48AM Annual physical exam Jul 13 2020 10:48AM Vitamin D deficiency Jul 13 2020 10:48AM Encounter for other and unsp ecified procedures and aftercare; unspecified aftercare Jul 14 2020 9:39AM Amenorrhea Jul 21 2020 1:35PM Fatigue Jul 21 2020 1:35PM Vitamin D deficiency Jul 21 2020 1:35PM Asthma Jul 21 2020 1:35PM Diabetes Mellitus, Type II Jul 21 2020 1:35PM Morbid obesity Jul 21 2020 1:35PM Routine gynecological examination Jul 21 2020 1: 35PM Encounter for Papanicolaou c ervical smear to confirm findings of recent normal smear following initial abnormal smear Jul 21 2020 1:35PM Screening for breast cancer Jul 21 2020 1:35PM Morbid obesity Dec 01 2020 8:11AM Vitamin D deficiency Dec 01 2020 8:11AM Asthma Dec 01 2020 8:11AM Diabetes Mellitus, Type II Dec 01 2020 8:11AM Vitamin B12 deficiency Dec 01 2020 8:11AM Morbid obesity Jun 05 2021 3:05PM Vitamin D Deficiency Jun 05 2021 3:05PM Diabetes Mellitus, Type II Jun 05 2021 3:05PM Vitamin B12 deficiency Jun 05 2021 3:05PM Vitamin D Deficiency Jun 05 2021 4:19PM Diabetes Mellitus, Type II Jun 05 2021 4:19PM Vitamin B12 deficiency Jun 05 2021 4:19PM Drug therapy Jun 05 2021 4:19PM Annual physical exam Jun 05 2021 4:19PM Uncontrolled type 2 diabetes mellitus with hyperglycemia Jul 06 2021 1:31PM BMI 50.0-59.9, adult Jul 06 2021 1:31PM Morbid obesity due to excess calories Jul 06 2021 1:31PM Vitamin D Deficiency Jul 06 2021 1:31PM Vitamin B12 deficiency Jul 06 2021 1:31PM Morbid obesity Dec 21 2021 8:10AM Vitamin D deficiency Dec 21 2021 8:10AM Asthma Dec 21 2021 8:10AM Diabetes Mellitus, Type II Dec 21 2021 8:10AM Vitamin B12 deficiency Dec 21 2021 8:10AM Dysuria Dec 21 2021 8:10AM Allergic rhinitis Dec 21 2021 8:10AM Diabetes Mellitus, Type II Dec 21 2021 10:32AM Drug therapy Dec 21 2021 10:32AM Vitamin D Deficiency Jul 22 2022 1:43PM BMI 50.0-59.9, adult Jul 22 2022 1:43PM Morbid obesity due to excess calories Jul 22 1:43PM Vitamin B12 deficiency Jul 22 2022 1:43PM Type 2 diabetes mellitus wit h other specified complication Jul 22 2022 1:43PM Mixed hyperlipidemia Jul 22 2022 1:43PM Low HDL Jul 22 2022 1:43PM Nicotine dependence Jul 22 2022 1:43PM Arthralgia Jul 22 2022 1:43PM Elevated rheumatoid factor Jul 30 2022 2:41PM Type 2 diabetes mellitus wit h other specified complication Jan 09 2023 9:38AM Mixed hyperlipidemia Jan 09 2023 9:38AM Dyslipidemia Jan 09 2023 9:38AM High blood triglycerides Jan 09 2023 9:38AM Encounter for other and unsp ecified procedures and aftercare; unspecified aftercare Jan 13 2023 3:28PM Morbid obesity Jan 17 2023 8:04AM Asthma Jan 17 2023 8:04AM Type 2 diabetes mellitus wit h other specified complication Jan 17 2023 8:04AM Mixed hyperlipidemia Jan 17 2023 8:04AM Pulmonary embolism Jan 17 2023 8:04AM Vitamin D Deficiency Feb 07 2023 8:11AM BMI 50.0-59.9, adult Feb 07 2023 8:11AM Morbid obesity due to excess calories Feb 07 2023 8:11AM Vitamin B12 deficiency Feb 07 2023 8:11AM Type 2 diabetes mellitus wit h other specified complication Feb 07 2023 8:11AM Mixed hyperlipidemia Feb 07 2023 8:11AM Nicotine dependence Feb 07 2023 8:11AM Arthralgia Feb 07 2023 8:11AM Edema Feb 07 2023 8:11AM Vitamin D deficiency Apr 24 2023 2:22PM Type 2 diabetes mellitus wit h other specified complication Apr 24 2023 2:22PM Mixed hyperlipidemia Apr 24 2023 2:22PM Drug therapy Apr 24 2023 2:22PM Vitamin D Deficiency May 16 2023 8:33AM BMI 50.0-59.9, adult May 16 2023 8:33AM Morbid obesity due to excess calories May 16 8:33AM Vitamin B12 deficiency May 16 2023 8:33AM Type 2 diabetes mellitus wit h other specified complication May 16 2023 8:33AM Mixed hyperlipidemia May 16 2023 8:33AM Arthralgia May 16 2023 8:33AM Rheumatoid arthritis May 16 2023 8:33AM Leukocytosis May 16 2023 8:33AM Colonoscopy refused May 16 2023 8:33AM Rheumatoid arthritis Aug 01 2023 2:18PM Type 2 diabetes mellitus wit h other specified complication Aug 01 2023 2:18PM Mixed hyperlipidemia Aug 01 2023 2:18PM High blood triglycerides Aug 01 2023 2:18PM Dyslipidemia Aug 01 2023 2:18PM Drug therapy Aug 01 2023 2:18PM Payers Insurance Name Company Name Plan Name Plan Number Policy Number Policy Group Number Start Date Web Tpa Web Tpa [id number] Saturday, 2018 [facility] [id number] N/A Risk Center Point [employer] [facility] [employer] [phone] N/A History of Encounters Visit Date Visit Type Provider 05/16/2023 Established Pt Binu jamison MD 05/09/2023 Lab Binu jamison MD 02/07/2023 Established Pt Binu jamison MD 01/24/2023 Lab Binu jamison MD 01/17/2023 Established Pt Binu jamison MD 07/22/2022 Established Pt 07/22/2022 Established Pt Binu jamison MD 12/21/2021 Established Pt Janeth FLETCHER RN 07/06/2021 Established Pt Binu jamison MD 06/08/2021 Lab Lab Lab C 12/01/2020 Established Pt Janeth FLETCHER RN 07/21/2020 Pap 07/21/2020 Pap Janeth FLETCHER RN 07/14/2020 Lab Lab Lab C 09/28/2019 Same Day Add On 09/28/2019 Same Day Add On Leighann FLETCHER RN 12/18/2018 Established Pt Binu jamisno MD 12/11/2018 Lab Lab Lab C 12/30/2016 Established Pt Binu jamison MD 12/26/2016 Lab Lab Lab C 03/19/2016 Established Pt 03/19/2016 Established Pt Binu jamison MD 03/11/2016 Lab Lab Lab C 01/17/2016 Established Pt Maris gan CHALK CUTTER 11/11/2014 Same Day Add On Yudith LYNNE 08/24/2014 Same Day Add On Justice Welch s, III CHALK CUTTER 10/29/2013 Same Day Add On Egegik ZZZZNorri s, III CHALK CUTTER 07/21/2013 Same Day Add On [place] ZZZZNorri s, III CHALK CUTTER 10/19/2012 Same Day Add On Maris GuerreroWanwalteril l CHALK CUTTER 06/03/2012 Established Pt Ray ZZZRiley PA- C 09/06/2011 Same Day Add On [place] ZZZZNorri s, III CHALK CUTTER 07/04/2011 Established Pt Binu jamison MD 06/24/2011 Established Pt Diogo Law MD 03/29/2011 Established Pt Ray ZZZRiley PA- C 03/26/2011 Established Pt Ray ZZZRiley PA- C 03/25/2011 Same Day Add On Ray ZZZRiley PA- C 07/05/2010 Same Day Add On Ray ZZZRiley PA- C 08/17/2009 Same Day Add On Ray ZZZRiley PA- C 07/04/2009 Established Pt Ray ZZZRiley PA- C 03/21/2009 Same Day Add On Ray ZZZRiley PA- C 02/27/2009 Same Day Add On Ray ZZZRiley PA- C 02/22/2009 Established Pt Ray ZZZRiley PA- C 12/06/2008 Established Pt Ray ZZZRiley PA- C 09/05/2008 Same Day Add On Ray ZZZRiley PA- C 09/17/2007 Established Pt Ray ZZZRiley PA- C 09/07/2007 Established Pt Jose David Ochoa rd, Jr. MD 07/13/2007 New Pt Ray ZZZRiley PA- C
[2023-12-16 10:55] LABS: Glucose Point of Care 119 mg/dL (70-110)
[2023-12-16] MEDS: gadobenate dimeglumine 20 mL vial IV (12:14)
--- NOTE | 2023-12-16 15:54 | PM.PN ---
Subjective Subjective: Back from MRI this morning. reports having a mild headache. Able to communicate a little better. Medications: Reviewed: Yes Vitals/I&O/Wt Last Vital Signs Temp 97.6 F 12/16/23 15:40 Pulse 90 12/16/23 15:40 Resp 18 12/16/23 15:40 BP 118/75 12/16/23 15:40 Pulse Ox 95 12/16/23 15:40 O2 Del Method Nasal Cannula 12/16/23 15:40 12/16/23 12/16/23 12/16/23 06:59 14:59 22:59 Output Total 400 / 400 300 / 300 Balance -400 / -400 -300 / -300 Weight last 48 hrs Weight 320 lb Weight 326 lb Weight 326 lb Physical Exam Narrative: General: Cooperative patient in no apparent distress. HEENT: Normocephalic, Atraumatic. mild discrepency in pupils with slight increase in size of Left. External ears normal. Nasal passages patent without drainage. MMM. Heart: RRR. No rubs, gallops or murmurs. Resp: LCTA. No respiratory distress, no use of accessory muscles. Abd: Soft, non-tender. Non-distended. Extremities: No edema. Skin: No rash or lesions on exposed areas. Neuro: Generalized weakness to extremities. Dysarthria. Urinary Catheter Management: Webb: Cath Placed During This Visit: yes Reason for Continuing Indwelling Catheter: Other Urinary Catheter Date of Insertion: 12/16/23 Urinary Catheter Time of Insertion: 00:45 Data 12/16/23 00:49 12/16/23 00:49 MRI: Radiologist's impression: MRI BRAIN WITH AND WITHOUT CONTRAST HISTORY: acute stroke COMPARISON: CT head 12/16/2023 TECHNIQUE: Multiplanar imaging performed through the brain with MultiHance 20 ml's IV. No acute infarcts are seen. Cho-white matter differentiation is well preserved. Normal diffusion imaging. No prior infarct. No significant white matter disease. No atrophy. No susceptibility artifacts or prior lacunar infarcts. Normal temporal lobes. No hippocampal atrophy. Ventricles and extra-axial spaces are normal. Clivus and pituitary gland are normal. Visualized posterior fossa and brainstem are also normal. Postcontrast images are negative for masses or vascular malformations. Dural venous sinuses are normal. Paranasal sinuses: Well aerated with no significant disease. Mastoid air cells: Normal. Calvarium and scalp: Normal. IMPRESSION: 1. No acute infarct. No diffusion abnormality. 2. No prior infarct. No atrophy or significant small vessel disease. 3. No mass. CT Head: Radiologist's impression: Exam: CT Head Without Contrast Exam date and time: 12/16/2023 12:10 AM Age: 48 years old Clinical indication: Stroke-like symptoms; Speech disturbance and other: Dysphasia/ aphasia; Additional info: Symptoms of acute stroke TECHNIQUE: Imaging protocol: Computed tomography of the head without contrast. Radiation optimization: All CT scans at this facility use at least one of these dose optimization techniques: automated exposure control; mA and/or kV adjustment per patient size (includes targeted exams where dose is matched to clinical indication); or iterative reconstruction. Other technique: STROKE PROTOCOL was implemented. COMPARISON: No relevant prior studies available. RADIATION DOSE METRICS: Total DLP (mGy-cm): 2208.18 FINDINGS: Brain: There are small hypodensities in the central midbrain and rey, which may represent ischemic infarcts of indeterminate age or artifacts. No acute intracranial hemorrhage. No mass effect or midline shift. No acute extraaxial fluid collection. Unremarkable white matter. Cerebral ventricles: No ventriculomegaly. Paranasal sinuses: Partially visualized sinuses are unremarkable. No fluid levels. Mastoid air cells: Visualized mastoid air cells are well aerated. Bones/joints: Unremarkable. No acute calvarial fracture. Soft tissues: There is a 1.2 cm skin lesion in the left frontal scalp. CT/CT head thrombolytic [id number] IMPRESSION: 1. There are small hypodensities in the central midbrain and rey, which may represent ischemic infarcts of indeterminate age or artifacts. Brain MRI without IV contrast is recommended to further evaluate. 2. No acute intracranial hemorrhage. 3. A 1.2 cm skin lesion in the left frontal scalp. Other CT: Radiologist's impression: Exam: CTA Head With Contrast, Arteriography Exam date and time: 12/16/2023 12:22 AM Age: 48 years old Clinical indication: Speech disturbance; Dysphasia; Additional info: Ams/cva TECHNIQUE: Imaging protocol: Computed tomographic angiography of the head with contrast. Exam focused on the arteries. 3D rendering (Not supervised by radiologist): MIP and/or 3D reconstructed images were created by the technologist. Radiation optimization: All CT scans at this facility use at least one of these dose optimization techniques: automated exposure control; mA and/or kV adjustment per patient size (includes targeted exams where dose is matched to clinical indication); or iterative reconstruction. Contrast material: OMNI 350; Contrast volume: 100 ml; Contrast route: INTRAVENOUS (IV); COMPARISON: CT head thrombolytic [id number] 12/16/2023 12:10 AM RADIATION DOSE METRICS: Total DLP (mGy-cm): 565.02 FINDINGS: ANTERIOR CIRCULATION: Right internal carotid artery: Intracranial segment is patent with no significant stenosis. No aneurysm. Calcified atherosclerotic plaques without significant stenosis. Right middle cerebral artery: No occlusion or significant stenosis. No aneurysm. Right anterior cerebral artery: No occlusion or significant stenosis. No aneurysm. Left internal carotid artery: Intracranial segment is patent with no significant stenosis. No aneurysm. Calcified atherosclerotic plaques without significant stenosis. Left middle cerebral artery: No occlusion or significant stenosis. No aneurysm. Left anterior cerebral artery: No occlusion or significant stenosis. No aneurysm. POSTERIOR CIRCULATION: Right vertebral artery: No occlusion or significant stenosis. No aneurysm. Left vertebral artery: No occlusion or significant stenosis. No aneurysm. Basilar artery: No occlusion or significant stenosis. No aneurysm. Right posterior cerebral artery: No occlusion or significant stenosis. No aneurysm. There is a origin of the right posterior cerebral artery, which is a normal variant. Left posterior cerebral artery: No occlusion or significant stenosis. No aneurysm. There is a origin of the left posterior cerebral artery, which is a normal variant. Brain: There is no evidence of acute intracranial hemorrhage, subacute or chronic ischemic infarct, acute intra-axial or extra-axial fluid collection, mass effect, or midline shift. Cerebral ventricles: No ventriculomegaly. Bones/joints: Unremarkable. No acute fracture. Soft tissues: Unremarkable. PROCEDURE INFORMATION: Exam: CTA Neck With Contrast Exam date and time: 12/16/2023 12:22 AM Age: 48 years old Clinical indication: Speech disturbance; Dysphasia; Additional info: Ams/cva TECHNIQUE: Imaging protocol: Computed tomographic angiography of the neck with contrast. Exam focused on the cervical segments of the vasculature. 3D rendering (Not supervised by radiologist): MIP and/or 3D reconstructed images were created by the technologist. Radiation optimization: All CT scans at this facility use at least one of these dose optimization techniques: automated exposure control; mA and/or kV adjustment per patient size (includes targeted exams where dose is matched to clinical indication); or iterative reconstruction. Contrast material: OMNI 350; Contrast volume: 100 ml; Contrast route: INTRAVENOUS (IV); COMPARISON: CT head thrombolytic [id number] 12/16/2023 12:10 AM RADIATION DOSE METRICS: Total DLP (mGy-cm): 565.02 FINDINGS: Right common carotid artery: No stenosis. No dissection or occlusion. Right internal carotid artery: No stenosis of the extracranial segment. No dissection or occlusion. Right external carotid artery: No occlusion or stenosis of the origin. Left common carotid artery: No stenosis. No dissection or occlusion. Left internal carotid artery: No stenosis of the extracranial segment. No dissection or occlusion. Left external carotid artery: No occlusion or stenosis of the origin. Right vertebral artery: No stenosis. No dissection or occlusion. Left vertebral artery: No stenosis. No dissection or occlusion. Soft tissues: Normal. No significant soft tissue swelling. Bones/joints: No acute fracture. Lungs: Bilateral pulmonary edema. CT/CT angio headneck* [id number] IMPRESSION: 1. No major intracranial artery aneurysm, obstruction or significant stenosis. 2. origin of bilateral posterior cerebral arteries, which is a normal variant. 3. No acute intracranial findings. IMPRESSION: 1. No major neck artery stenosis, aneurysm, pseudoaneurysm or occlusion. 2. Bilateral pulmonary edema. A&P Assessment and plan (1) Ischemic cerebrovascular accident (CVA): (2) Non-fluent aphasia: (3) Pulmonary embolism: Qualifiers: Pulmonary embolism type: unspecified Chronicity: chronic Acute cor pulmonale presence: unspecified Qualified Code(s): I27.82 - Chronic pulmonary embolism (4) Seropositive rheumatoid arthritis of multiple sites: (5) Immunocompromised state: (6) Morbid obesity with BMI of 50.0-59.9, adult: (7) Diabetes: Qualifiers: Diabetes mellitus type: drug or chemical induced Diabetes mellitus remote computer terminal operator insulin use: without remote computer terminal operator use Diabetes mellitus complication status: without complication Qualified Code(s): 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 Continue close inpatient monitoring. MRI completed today and was negative for acute infarct. Continues to have Left sided weakness and difficulty speaking. Continue PT/OT/CORNER BEAD OPERATOR. Speech recommended Level 5 dysphagia diet and will order. Continue Telemetry. Permissive hypertension up to SBP 220, [id number] Continue ASA, statin, Lovenox for DVT PPx. Echo shows EF of 50-55%, otherwise unremarkable. Continue accuchecks, SSI for TIIDM. A1c was 6.9. Will restart prednisone for RA when appropriate. WBC mildly elevated. D/C fluids when tolerating oral intake. K+ was slightly low at 3.4. Replace and recheck in a.m. Continue neuro checks, Fall assessments, aspiration precautions. Case management for discharge planning - possibly inpatient rehab vs. SNF. Continue home medications for other chronic illnesses. Code Status: Full IVF: NS @ 100 DVT PPx: Lovenox GI PPx: None ABx: None Diet: Dysphagia LV5 Discharge plan: TBD. Will check into inpatient rehab vs. SNF. Attestations Medical Necessity Statement*: Patient requires greater than 2 midnight stay for the diagnosis and treatment of acute ischemic stroke in the rey and midbrain. She needs to be closely monitored for worsening signs and symptoms. With patient's comorbidities she is at high risk for complications of stroke. Coding Level of Care Code Acute Code for Chg Fwd Moderate MDM includes number and complexity of problems actively addressed during encounter, amount and/or complexity of data reviewed/ordered and described risk of complication, morbidity or mortality of management as documented Diagnoses Ischemic cerebrovascular accident (CVA) I63.9 Non-fluent aphasia R47.01 Chronic pulmonary embolism, unspecified pulmonary embolism type, unspecified whether acute cor pulmonale present I27.82 Pulmonary embolism type: unspecified Chronicity: chronic Acute cor pulmonale presence: unspecified Seropositive rheumatoid arthritis of multiple sites M05.79 Immunocompromised state D84.9 Morbid obesity with BMI of 50.0-59.9, adult E66.01; Z68.43 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
[2023-12-16 16:48] LABS: Glucose Point of Care 114 mg/dL (70-110)
[2023-12-16 20:38] LABS: Glucose Point of Care 127 mg/dL (70-110)
[2023-12-16] MEDS: atorvastatin 40 mg Tablet 80 MG PO (21:14)
[2023-12-17] VITALS (7 sets, daily range): BP systolic 96–137; BP diastolic 62–87; PULSE 79–94; RESP 15–18; TEMP 36.6–36.8; O2SAT 93–99
[2023-12-17] MEDS: sodium chloride 0.9% 1,000 ML 100 ML IV ×2 (02:06→14:16)
[2023-12-17] MEDS: acetaminophen 325 mg Tablet PO ×2 (05:25→22:48)
[2023-12-17 05:46] LABS: Basophils # 0.2 10^3/uL (0.0-0.1); Basophils % 2.4 %; Eosinophils # 0.1 10^3/uL (0.0-0.8); Eosinophils % 1.3 %; Lymphocytes # 3.3 10^3/uL (0.8-4.8); Lymphocytes % 52.8 %; Mean Corpuscular HGB Conc 32.1 g/dL (30-55); Mean Corpuscular Hemoglobin 33.2 pg (27-33); Mean Corpuscular Volume 103.5 fl (85-98); Mean Platelet Volume 9.2 fL (7.4-10.4); Monocytes # 0.4 10^3/uL (0.2-0.9); Neutrophils # 2.27 10^3/uL (1.8-7.7); Neutrophils % 36.2 %; Nucleated Red Blood Cells % 0 %; Platelet Count 290 10^3/cmm (157-399); Red Blood Count 3.67 10^6/uL (3.85-5.65); White Blood Count 6.27 10^3/uL (3.29-11.43)
[2023-12-17 06:12] LABS: Alanine Aminotransferase 26 U/L (0-33); Albumin Level 3.5 g/dL (3.5-5.2); Alkaline Phosphatase 72 U/L (35-105); Anion Gap 12.7 (5-19); Aspartate Amino Transferase 17 U/L (0-32); Blood Urea Nitrogen 8 mg/dL (6-20); Calcium 8.8 mg/dL (8.5-10.5); Carbon Dioxide 27 mmol/L (22-29); Chloride 104 mmol/L (98-107); Globulin 2.2 g/dL (1.3-4.6); Glomerular Filtration Rate 130.6 mL/min (90-130); Glucose 119 mg/dL (65-115); Magnesium 1.7 mg/dL (1.7-2.3); Osmolality Calculated 289 mOsm/kg (285-295); Potassium 3.7 mmol/L (3.5-5.1); Sodium 140 mmol/L (136-145); Thyroid Stimulating Hormone 2.43 uIU/mL (0.27-4.20); Total Bilirubin 0.5 mg/dL (0.15-1.2); Total Protein 5.7 g/dL (6.6-8.7)
[2023-12-17] MEDS: aspirin 81 mg EC Tablet PO (08:22)
[2023-12-17] MEDS: enoxaparin 40 mg/0.4 mL Syringe SUBCUT (08:22)
[2023-12-17 11:37] LABS: Glucose Point of Care 124 mg/dL (70-110)
--- NOTE | 2023-12-17 16:26 | PM.PN ---
Subjective Subjective: Hospital course, labs appreciated. Seen with caregiver at bedside. Patient sitting up in chair. States feeling better. Still has expressive aphasia though able to have conversation. Has remained hemodynamically stable and afebrile. Medications: Reviewed: Yes Vitals/I&O/Wt Last Vital Signs Temp 97.8 F 12/17/23 07:00 Pulse 79 12/17/23 14:00 Resp 15 12/17/23 07:00 BP 119/72 12/17/23 07:00 Pulse Ox 99 12/17/23 07:00 O2 Del Method Nasal Cannula 12/17/23 07:00 O2 Flow Rate 2 12/16/23 21:16 12/17/23 12/17/23 12/17/23 06:59 14:59 22:59 Intake Total 1200 / 2200 1480 / 1480 Output Total 425 / 725 Balance 775 / 1475 1480 / 1480 Weight last 48 hrs Weight 145.15 kg Weight 147.871 kg Weight 147.871 kg Physical Exam Narrative: General: Cooperative patient in no apparent distress. HEENT: Normocephalic, Atraumatic. mild discrepency in pupils with slight increase in size of Left. External ears normal. Nasal passages patent without drainage. MMM. Heart: RRR. No rubs, gallops or murmurs. Resp: LCTA. No respiratory distress, no use of accessory muscles. Abd: Soft, non-tender. Non-distended. Extremities: No edema. Skin: No rash or lesions on exposed areas. Neuro: Generalized weakness to extremities. Dysarthria. Urinary Catheter Management: Webb: Cath Placed During This Visit: yes Reason for Continuing Indwelling Catheter: Other Urinary Catheter Date of Insertion: 12/16/23 Urinary Catheter Time of Insertion: 00:45 Data 12/17/23 05:35 12/17/23 05:35 A&P Assessment and plan (1) Ischemic cerebrovascular accident (CVA): Continue with PT and OT. Advance diet as per speech therapy. Appreciate lipid panel and A1c results. Continue with baby aspirin and statins. Goal blood pressure less than 140/90 mmHg. Restart home dose of Eliquis which she takes for pulmonary embolism. History of rheumatoid arthritis. Lupus workup pending. Check ESR, CRP. (2) Pulmonary embolism: Past history. Restart home dose of Eliquis 5 mg twice daily. Patient is at high risk because of history of rheumatoid arthritis. Lupus workup pending. Qualifiers: Pulmonary embolism type: unspecified Chronicity: chronic Acute cor pulmonale presence: unspecified Qualified Code(s): I27.82 - Chronic pulmonary embolism (3) Non-fluent aphasia: (4) Seropositive rheumatoid arthritis of multiple sites: Restart home dose of prednisone. Takes 10 mg oral daily. (5) Immunocompromised state: (6) Morbid obesity with BMI of 50.0-59.9, adult: (7) Diabetes: Appreciate A1c. Continue with lispro before meals and at bedtime. 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 Remove Webb catheter. Full code Advance diet per speech therapy. Currently on dysphagia level 5. Protonix for PUD prophylaxis Eliquis will be sufficient for DVT prophylaxis. Discharge plan: Plan discharge to acute rehab. Awaiting authorization. Attestations Medical Necessity Statement*: Requires further hospitalization for management of CVA while safe discharge planning is sought. 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
[2023-12-17 17:14] LABS: Glucose Point of Care 280 mg/dL (70-110)
[2023-12-17] MEDS: apixaban 5 mg Tablet PO (17:21)
[2023-12-17] MEDS: insulin lispro 100 unit/1 mL SUBCUT (17:21)
[2023-12-17 17:39] LABS: C Reactive Protein 7.5 mg/L (0.0-4.9)
[2023-12-17 19:54] LABS: Erythrocyte Sedimentation Rate 11 mm/hr (0-15)
[2023-12-17 20:19] LABS: Glucose Point of Care 75 mg/dL (70-110)
[2023-12-17] MEDS: atorvastatin 40 mg Tablet 80 MG PO (21:22)
[2023-12-18] VITALS: BP 131/71; PULSE 79; RESP 18; TEMP 36.6; O2SAT 93
[2023-12-18 03:47] LABS: Basophils # 0.1 10^3/uL (0.0-0.1); Basophils % 1.2 %; Eosinophils # 0.1 10^3/uL (0.0-0.8); Eosinophils % 1.1 %; Hematocrit 36.5 % (36-47); Lymphocytes # 4.5 10^3/uL (0.8-4.8); Lymphocytes % 50.2 %; Mean Corpuscular HGB Conc 32.9 g/dL (30-55); Mean Corpuscular Hemoglobin 33.7 pg (27-33); Mean Corpuscular Volume 102.5 fl (85-98); Mean Platelet Volume 9.2 fL (7.4-10.4); Monocytes # 0.6 10^3/uL (0.2-0.9); Monocytes % 7.1 %; Neutrophils # 3.54 10^3/uL (1.8-7.7); Neutrophils % 40.1 %; Nucleated Red Blood Cells % 0 %; Platelet Count 278 10^3/cmm (157-399); Red Blood Count 3.56 10^6/uL (3.85-5.65); Red Cell Distribution Width 14.6 % (12.1-15.1); White Blood Count 8.86 10^3/uL (3.29-11.43)
[2023-12-18 04:00] VITALS: BP 127/74; PULSE 91; RESP 18; TEMP 36.6; O2SAT 93
[2023-12-18 04:09] LABS: Alanine Aminotransferase 23 U/L (0-33); Albumin Level 3.3 g/dL (3.5-5.2); Alkaline Phosphatase 73 U/L (35-105); Aspartate Amino Transferase 16 U/L (0-32); Blood Urea Nitrogen 8 mg/dL (6-20); Calcium 8.7 mg/dL (8.5-10.5); Carbon Dioxide 25 mmol/L (22-29); Chloride 104 mmol/L (98-107); Globulin 2.4 g/dL (1.3-4.6); Glomerular Filtration Rate 130.6 mL/min (90-130); Glucose 117 mg/dL (65-115); Osmolality Calculated 285 mOsm/kg (285-295); Sodium 138 mmol/L (136-145); Total Bilirubin 0.4 mg/dL (0.15-1.2); Total Protein 5.7 g/dL (6.6-8.7)
[2023-12-18 04:13] LABS: Slide Review Slide Review Perform
[2023-12-18 06:00] VITALS: PULSE 75
[2023-12-18 06:31] LABS: Glucose Point of Care 126 mg/dL (70-110)
[2023-12-18 08:00] VITALS: BP 122/72; PULSE 100; RESP 15; TEMP 36.4; O2SAT 96
[2023-12-18] MEDS: pantoprazole DR 40 mg Tablet PO (08:37)
[2023-12-18] MEDS: aspirin 81 mg EC Tablet PO (08:37)
[2023-12-18] MEDS: folic acid 1 mg Tablet PO (08:37)
[2023-12-18] MEDS: apixaban 5 mg Tablet PO (08:37)
[2023-12-18] MEDS: predniSONE 10 mg Tablet PO (08:37)
[2023-12-18] MEDS: enoxaparin 40 mg/0.4 mL Syringe SUBCUT (08:37)
--- NOTE | 2023-12-18 10:32 | PM.DCS ---
Discharge Providers Date of Admission: 12/16/23 03:05 Date of Discharge: December 18, 2023 Attending Provider at Admission: Huey Hair DO Attending Provider at Discharge: Kareem Lopez MD Primary Care Provider: Binu Etienne MD Diagnoses at Discharge Discharge Diagnosis (1) Ischemic cerebrovascular accident (CVA): Status: Acute Permanent problem details: Central midbrain and rey hypodensities (2) Pulmonary embolism: Status: Chronic Qualifiers: Acute cor pulmonale presence: unspecified Chronicity: chronic Pulmonary embolism type: unspecified Qualified Code(s): I27.82 - Chronic pulmonary embolism (3) Non-fluent aphasia: Status: Acute (4) Seropositive rheumatoid arthritis of multiple sites: Status: Acute (5) Immunocompromised state: Status: Acute (6) Morbid obesity with BMI of 50.0-59.9, adult: Status: Acute (7) Diabetes: Status: Acute Qualifiers: Diabetes mellitus complication status: without complication Diabetes mellitus intermediate designer insulin use: without care home use Diabetes mellitus type: drug or chemical induced Qualified Code(s): 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 Her daughter is present and gives other history that patient was unable to speak. She seemed to understand but could not find her words. Patient came to the ER as a stroke code. The CT of the head showed brainstem infarcts of indeterminate age. CTA of head and neck was negative it was felt that this was an acute stroke in the brainstem. To my understanding she was out of the window for thrombolytics per neurology Hospital Course Hospital Course Patient was admitted to the hospital close evaluation and management of acute CVA. She was seen by neurologist and did not qualify for [facility] as she is on Eliquis as an outpatient. He worked well with physical therapy speech therapy and Occupational Therapy during hospitalization. Hospitalization was otherwise unremarkable and she showed gradual improvement. She has been discharged to acute rehab for further rehabilitation. Currently she is on dysphagia level 6 diet Physical Exam Narrative: General: Cooperative patient in no apparent distress. HEENT: Normocephalic, Atraumatic. mild discrepency in pupils with slight increase in size of Left. External ears normal. Nasal passages patent without drainage. MMM. Heart: RRR. No rubs, gallops or murmurs. Resp: LCTA. No respiratory distress, no use of accessory muscles. Abd: Soft, non-tender. Non-distended. Extremities: No edema. Skin: No rash or lesions on exposed areas. Neuro: Generalized weakness to extremities. Dysarthria. Urinary Catheter Management: Webb: Cath Placed During This Visit: yes, but has since been removed by the nurse Reason for Continuing Indwelling Catheter: Decision to DC Catheter Urinary Catheter Date of Insertion: 12/16/23 Urinary Catheter Time of Insertion: 00:45 Date Urinary Catheter Removed: 12/17/23 Time Urinary Catheter Discontinued: 16:50 Discharge Data Studies Completed and Pending Completed Studies During Hospitalization Category Date Time Status CT head thrombolytic [id number] Stat Cat Scan 12/16/23 00:07 Completed CTA head neck [CT angio headneck* [id number]] Stat Cat Scan 12/16/23 00:18 Completed XR chest 1V portable [id number] Stat Exams 12/16/23 00:06 Completed MR head wo/w con [id number] Routine MRI 12/16/23 03:05 Completed CV. echo complete* [id number] Routine Ultrasound 12/16/23 03:05 Completed Pending at discharge Category Date Time Status Lupus Inhibitor Panel Anticoag Routine Lab 12/17/23 05:35 Received Radiology Impressions Chest X-Ray 12/16/23 00:06 IMPRESSION: No acute findings. ADDENDUM: 12/16/23 0113 Mild bilateral pulmonary edema or pulmonary venous congestion. Head CT 12/16/23 00:07 IMPRESSION: 1. There are small hypodensities in the central midbrain and rey, which may represent ischemic infarcts of indeterminate age or artifacts. Brain MRI without IV contrast is recommended to further evaluate. 2. No acute intracranial hemorrhage. 3. A 1.2 cm skin lesion in the left frontal scalp. ASSESSMENT: ASPECTS ([place] Stroke Program Early CT Score) is 10. ADDENDUM: 12/16/23 0035 THIS REPORT CONTAINS FINDINGS THAT MAY BE CRITICAL TO PATIENT CARE. The findings and recommendations were verbally communicated via telephone conference with LUAN Shah by Dr. Gonzalez on 12/16/2023 at 12:33 AM CDT. The findings were acknowledged and understood. Head/Neck CTA 12/16/23 00:18 IMPRESSION: 1. No major intracranial artery aneurysm, obstruction or significant stenosis. 2. origin of bilateral posterior cerebral arteries, which is a normal variant. 3. No acute intracranial findings. IMPRESSION: 1. No major neck artery stenosis, aneurysm, pseudoaneurysm or occlusion. 2. Bilateral pulmonary edema. REFERENCES: NASCET CRITERIA. The degree of stenosis in the cervical segment of the internal carotid artery is based on NASCET criteria. Normal is no stenosis. Mild is less than 50% stenosis. Moderate is 50-69% stenosis. Severe is 70% to 99% stenosis. Total occlusion is no detectable patent lumen. Laboratory Results WBC 8.86 10^3/uL (3.29-11.43) 12/18/23 03:30 RBC 3.56 10^6/uL (3.85-5.65) L 12/18/23 03:30 Hgb 12.00 g/dL (11.27-16.99) 12/18/23 03:30 Hct 36.5 % (36-47) 12/18/23 03:30 MCV 102.5 fl (85-98) H 12/18/23 03:30 MCH 33.7 pg (27-33) H 12/18/23 03:30 MCHC 32.9 g/dL (30-55) 12/18/23 03:30 RDW 14.6 % (12.1-15.1) 12/18/23 03:30 Plt Count 278 10^3/cmm (157-399) 12/18/23 03:30 MPV 9.2 fL (7.4-10.4) 12/18/23 03:30 Neut % (Auto) 40.1 % 12/18/23 03:30 Lymph % (Auto) 50.2 % 12/18/23 03:30 [place] % (Auto) 7.1 % 12/18/23 03:30 Eos % (Auto) 1.1 % 12/18/23 03:30 Baso % (Auto) 1.2 % 12/18/23 03:30 Neut # (Auto) 3.54 10^3/uL (1.8-7.7) 12/18/23 03:30 Lymph # (Auto) 4.5 10^3/uL (0.8-4.8) 12/18/23 03:30 [place] # (Auto) 0.6 10^3/uL (0.2-0.9) 12/18/23 03:30 Eos # (Auto) 0.1 10^3/uL (0.0-0.8) 12/18/23 03:30 Baso # (Auto) 0.1 10^3/uL (0.0-0.1) 12/18/23 03:30 Nucleated RBC % (auto) 0 % 12/18/23 03:30 Nucleated RBCs # 0.0 /100WBC 12/18/23 03:30 ESR 11 mm/hr (0-15) 12/17/23 05:35 PT 12.70 SECONDS (12.1-14.9) 12/16/23 00:49 INR 0.93 (0.8-1.2) 12/16/23 00:49 APTT 27.0 SECONDS (23.9-36.7) 12/16/23 00:49 Sodium 138 mmol/L (136-145) 12/18/23 03:30 Potassium 4.0 mmol/L (3.5-5.1) 12/18/23 03:30 Chloride 104 mmol/L (98-107) 12/18/23 03:30 Carbon Dioxide 25 mmol/L (22-29) 12/18/23 03:30 Anion Gap 13.0 (5-19) 12/18/23 03:30 BUN 8 mg/dL (6-20) 12/18/23 03:30 Creatinine 0.5 mg/dL (0.5-0.9) 12/18/23 03:30 GFR Calculation 130.6 mL/min (90-130) H 12/18/23 03:30 Glucose 117 mg/dL (65-115) H 12/18/23 03:30 POC Glucose 126 mg/dL (70-110) H 12/18/23 06:28 Estimat Average Glucose 151 12/16/23 00:49 Hemoglobin A1c 6.9 % (4.0-6.0) H 12/16/23 00:49 Calculated Osmolality 285 mOsm/kg (285-295) 12/18/23 03:30 Calcium 8.7 mg/dL (8.5-10.5) 12/18/23 03:30 Magnesium 1.7 mg/dL (1.7-2.3) 12/17/23 05:35 Total Bilirubin 0.4 mg/dL (0.15-1.2) 12/18/23 03:30 AST 16 U/L (0-32) 12/18/23 03:30 ALT 23 U/L (0-33) 12/18/23 03:30 Alkaline Phosphatase 73 U/L (35-105) 12/18/23 03:30 C-Reactive Protein 7.5 mg/L (0.0-4.9) H 12/17/23 05:35 Total Protein 5.7 g/dL (6.6-8.7) L 12/18/23 03:30 Albumin 3.3 g/dL (3.5-5.2) L 12/18/23 03:30 Globulin 2.4 g/dL (1.3-4.6) 12/18/23 03:30 Triglycerides 197 mg/dL (0-150) H 12/16/23 00:49 Cholesterol 191 mg/dL (0-200) 12/16/23 00:49 LDL Cholesterol, Calc 100 mg/dL (50-129) 12/16/23 00:49 HDL Cholesterol 52 mg/dL (60-100) L 12/16/23 00:49 LDL/HDL Ratio 1.92 RATIO (0.00-3.22) 12/16/23 00:49 Cholesterol/HDL Ratio 3.67 mg/dL (0.0-4.40) 12/16/23 00:49 TSH 2.43 uIU/mL (0.27-4.20) 12/17/23 05:35 Urine Color Yellow (Yellow) 12/16/23 00:53 Urine Appearance Clear (CLEAR) 12/16/23 00:53 Urine pH 6 (5-7) 12/16/23 00:53 Ur Specific [place] 1.010 (1.005-1.030) 12/16/23 00:53 Urine Protein Neg (Negative) 12/16/23 00:53 Urine Glucose (UA) Norm (Normal) 12/16/23 00:53 Urine Ketones Negative (Negative) 12/16/23 00:53 Urine Blood Neg (Negative) 12/16/23 00:53 Urine Nitrate Negative (Negative) 12/16/23 00:53 Urine Bilirubin Neg (Negative) 12/16/23 00:53 Urine Urobilinogen 1 mg/dL (Negative) H 12/16/23 00:53 Ur Leukocyte Esterase Negative (Negative) 12/16/23 00:53 Urine Opiates Screen Negative ng/mL (Negative) 12/16/23 00:53 Ur Barbiturates Screen Negative ng/mL (Negative) 12/16/23 00:53 Ur Phencyclidine Scrn Negative ng/mL (Negative) 12/16/23 00:53 Ur Amphetamines Screen Negative ng/mL (Negative) 12/16/23 00:53 U Benzodiazepines Scrn Negative ng/mL (Negative) 12/16/23 00:53 Urine Cocaine Screen Negative ng/mL (Negative) 12/16/23 00:53 U Marijuana (THC) Screen Negative ng/mL (Negative) 12/16/23 00:53 Vitals Last Vital Signs Temp 97.6 F 12/18/23 08:00 Pulse 100 12/18/23 08:00 Resp 15 12/18/23 08:00 BP 122/72 12/18/23 08:00 Pulse Ox 96 12/18/23 08:00 O2 Del Method Room Air 12/18/23 08:00 O2 Flow Rate 2 12/16/23 21:16 Discharge Plan Discharge Patient Disposition: Xfer Inpatient Rehab Fac Condition: Stable Prescriptions: New atorvastatin 40 mg Tablet 80 mg PO BEDTIME Qty: 60 0RF aspirin 81 mg Tablet,Delayed Release (Dr/Ec) 81 mg PO DAILY Qty: 30 0RF Continued fluticasone propionate [Allergy Relief (fluticasone)] 50 mcg/actuation spray,suspension 2 spray intranasal DAILY Rx Instructions: administer into each nostril albuterol sulfate [ProAir HFA] 90 mcg/actuation HFA aerosol inhaler 2 puff inhalation Q6H PRN (Reason: Shortness Of Breath) B Complex Plus Vitamin C [id number] mg capsule 1 cap PO DAILY Rx Instructions: give with food (meal/snack) cetirizine-pseudoephedrine [Zyrtec-D] 5-120 mg tablet extended release 12 hr 1 tab PO BID Eliquis 5 mg tablet 5 mg PO BID Humira Pen 40 mg/0.8 mL pen injector kit 40 mg SUBCUT Q14D Qty: 2 5RF Rx Instructions: ON AND folic acid 1 mg tablet 1 mg PO DAILY Qty: 90 3RF methotrexate sodium 2.5 mg tablet See Rx Instructions PO .week Qty: 150 1RF Rx Instructions: Split dose.. take 10 tabs on the same day once a week, take 5 tabs in the AM and 5 tabs in the PM omeprazole 40 mg capsule,delayed release(DR/EC) 40 mg PO DAILY Qty: 90 1RF prednisone 10 mg tablet 10 mg PO DAILY Qty: 90 1RF sulfasalazine 500 mg tablet 1 g PO BID Qty: 120 3RF Rx Instructions: 1 daily x1wk then 1 BID x1wk then 2 in AM and 1 HS for 1wk then stay on 2 BID. give with food cholecalciferol (vitamin D3) 50 mcg (2,000 unit) tablet 2,000 unit PO DAILY Qty: 90 1RF metformin 500 mg tablet 500 mg PO BID furosemide 20 mg tablet 20 mg PO DAILY PRN (Reason: Edema) diclofenac sodium 1 % gel 2 g topical QID PRN (Reason: Pain) Rx Instructions: apply to affected area as needed Discharge Orders: Discharge Order (Routine); Ordered 12/18/23 Ordered By: Kareem Lopez Referrals: Ciro Peraza MD [Physician] - 2 weeks (We have notified your physician's clinic of the need for a follow-up appointment to be scheduled. If you have not heard from them within the next 2 business days, please call them directly. ) Binu Etienne MD [Primary Care Provider] - 12/24/23 2:45 pm Discharge Diet: As Directed Discharge Activity: Resume usual activity and Increase activity as tolerated Patient Instructions: Opioid Safety Activity Restrictions/Additional Instructions: Dysphagia level 6 diet Discharge Attestations Time Spent in Discharge Care*: greater than 30 min Specific Discharge Activities: educating patient, educating and/or supporting family/caregiver, discussing with pcp/other providers, discussing with home health care case manager/social workers/dc planners, documenting/other paperwork and evaluating patient/reviewing data Status at Discharge: Cognitive status at discharge: cognitively intact, Behavioral status at discharge: cooperative, Functional status at discharge: other assisted ambulation, Overall status at discharge: patient is progressing back to baseline Quality Metrics Clinical Quality Measures [ Cerebrovascular Accident { Contraindication to Antithrombotic: None; antithrombotic prescribed; Contraindication to Anticoagulation: None; anticoagulation prescribed; Contraindication to Statin: None; Statin prescribed; Contraindication to tPA: Medical contraindications;}] Coding Level of Care Code Acute Code for Chg Fwd Diagnoses Ischemic cerebrovascular accident (CVA) I63.9 Chronic pulmonary embolism, unspecified pulmonary embolism type, unspecified whether acute cor pulmonale present I27.82 Acute cor pulmonale presence: unspecified Chronicity: chronic Pulmonary embolism type: unspecified Non-fluent aphasia R47.01 Seropositive rheumatoid arthritis of multiple sites M05.79 Immunocompromised state D84.9 Morbid obesity with BMI of 50.0-59.9, adult E66.01; Z68.43 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
[2023-12-18 11:22] LABS: Glucose Point of Care 140 mg/dL (70-110)
[2023-12-18 11:25] VITALS: BP 131/81; PULSE 82; RESP 16; TEMP 36.4; O2SAT 94
[2023-12-18 12:57] VITALS: BP 131/81; PULSE 82; RESP 16; TEMP 36.4; O2SAT 94
[2024-01-14 17:45] LABS: Lupus Anticoagulant NOT DETECTED; PTT-LA-Screen 38
== END 2023-12-18 12:57 | DRG 65 ==
LOC: ER 01:14 → MEDSURG 03:20
PROVIDERS: Family Medicine; Admitting Provider Internal Medicine; Emergency Provider Internal Medicine; PCP Family Medicine; Visit Provider Student in an Organized Health Care Education/Training Program
DX: I63.9 Cerebral infarction, unspecified (principal); D84.9 Immunodeficiency, unspecified; G81.94 Hemiplegia, unspecified affecting left nondominant side; Z68.43 Body mass index [BMI] 50.0-59.9, adult; Z86.711 Personal history of pulmonary embolism; Z79.01 Long term (current) use of anticoagulants; Z87.891 Personal history of nicotine dependence; R47.01 Aphasia; R29.707 NIHSS score 7; M05.89 Other rheumatoid arthritis with rheumatoid factor of multiple sites; Z79.52 Long term (current) use of systemic steroids; E66.01 Morbid (severe) obesity due to excess calories; E09.9 Drug or chemical induced diabetes mellitus without complications
CPT/HCPCS: 36415; 36416; 51702; 70450; 70496; 70498; 70553; 71045; 80053; 80061; 80306; 81003; 82962; 83036; 83735; 84443; 85025; 85610; 85613; 85651; 85730; 86140; 92507; 92523; 92526; 92610; 93005; 93306; 96360; 96372; 97110; 97116; 97162; 97167; 97530; 97535; 99285; A9577; J1650; J1815; J7030; J7512; Q9967

== ENCOUNTER → 2024-07-20 14:47 | Outpatient (BNVA) | payer OTHER, SELFPAY | PROVIDERS: PCP Family Medicine; Visit Provider Internal Medicine Rheumatology | DX: Z79.899 Other long term (current) drug therapy (principal); M05.79 Rheumatoid arthritis with rheumatoid factor of multiple sites without organ or systems involvement | CPT/HCPCS: 36415; 80076; 82565; 85025; 85651; 86140 ==

== ENCOUNTER → 2024-11-16 14:38 | Outpatient (BNVA) | payer OTHER, SELFPAY | PROVIDERS: PCP Family Medicine; Visit Provider Internal Medicine Rheumatology | DX: M05.79 Rheumatoid arthritis with rheumatoid factor of multiple sites without organ or systems involvement (principal); Z79.899 Other long term (current) drug therapy | CPT/HCPCS: 36415; 80076; 82565; 85025; 85651; 86140 ==

== ENCOUNTER → 2025-03-08 16:28 | Outpatient (BNVA) | payer OTHER, SELFPAY | PROVIDERS: PCP Family Medicine; Visit Provider Internal Medicine Rheumatology | DX: Z79.899 Other long term (current) drug therapy (principal); M05.79 Rheumatoid arthritis with rheumatoid factor of multiple sites without organ or systems involvement; E66.01 Morbid (severe) obesity due to excess calories; Z68.43 Body mass index [BMI] 50.0-59.9, adult; E09.9 Drug or chemical induced diabetes mellitus without complications | CPT/HCPCS: 36415; 80076; 82565; 83036; 85025; 85651; 86140 ==